=== PATIENT | female | born 1940 | race Caucasian/White ===

== ENCOUNTER 2021-01-25 16:47 | Inpatient (IN) | payer MEDICARE, SELFPAY ==
[2021-01-25] VITALS (8 sets, daily range): BP systolic 115–124; BP diastolic 72–77; PULSE 90–93; RESP 16–28; TEMP 36.6–36.9; O2SAT 92–95; BMI 28.0
--- NOTE | 2021-01-25 17:24 | ECG_ITS ---
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
--- NOTE | 2021-01-25 17:24 | XRR_ITS ---
PROCEDURE INFORMATION: Exam: XR Chest Exam date and time: 01/25/2021 5:26 PM Age: 80 years old Clinical indication: Cough and dyspnea and shortness of breath; Prior surgery; Surgery type: Pacemaker, valve; Additional info: Dyspnea/cough TECHNIQUE: Imaging protocol: XR of the chest. Views: 1 view. COMPARISON: CR Chest 1 [place] [id number] 09/01/2018 9:55 PM FINDINGS: Lungs: central pulmonary vasculature is prominent and indistinct. Mild airspace disease within the lung bases right greater than left. Pleural spaces: Unremarkable. No pleural effusion. No pneumothorax. Heart/Mediastinum: cardiac silhouette is enlarged. TAVR Bones/joints: Unremarkable. Other findings: Pole; Small effusions left greater than right. XR/XR chest 1V portable [id number] IMPRESSION: Mild edema with mild basilar airspace disease and small pleural effusions right greater than left.
--- NOTE | 2021-01-25 17:25 | W.ED.SOB ---
Documented by User: Shiraz Cramer DO 01/26/21 06:22 HPI - SOB/Dyspnea General: Chief Complaint: Shortness of Breath/Dyspnea Stated Complaint: Trouble Breathing Time Seen by Provider: 01/25/21 17:17 History of Present Illness: HPI Narrative: 80-year-old female presents to the emergency room with a complaint of shortness of breath. Patient evidently was started on a diltiazem recently as his concern that he she is having an allergic reaction to it. She did not have any chest pain. MD elicited complaint: shortness of breath Pertinent past history: COPD Onset (ago): hour(s) Context: other (New medication) Timing: constant Severity: moderate Exacerbating factors: lying flat, exertion, recent new medication, movement and talking Relieving factors: oxygen, rest and upright position Known history of: COPD Associated symptoms: Reports orthopnea; Deny abdominal pain, chest congestion, chest pain, cough, diaphoresis, dizziness, extremity pain, fever(s), hemoptysis, lightheadedness, myalgias, nausea, palpitations, paresthesias, polydipsia, polyuria, rash, sense of impending doom, syncope or vomiting Treatment prior to arrival: none Review of Systems Const: Denies: fever(s) or diaphoresis ENMT: Denies: throat pain, ear or mastoid pain, nasal discharge or nasal congestion Card: Reports: orthopnea; Denies: chest pain, palpitations, lightheadedness or syncope Resp: Denies: hemoptysis or chest congestion GI: Denies: abdominal pain, nausea or vomiting : Denies: flank pain, difficulty voiding, dysuria, urinary frequency or urinary urgency Musc: Denies: extremity pain Skin/Breast: Denies: rash or pruritus Neuro: Denies: dizziness Endo: Denies: polyuria or polydipsia PFSH ED PFSH: Medical History Aortic valve stenosis COPD (chronic obstructive pulmonary disease) Diverticulitis HTN (hypertension) Hyperlipidemia 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 Brother CAD (coronary artery disease) Other Cancer Myocardial infarct Social History Smoking and tobacco status: former smoker Alcohol intake: never Substance/Drug Use: never Household members: family Physical Exam Const: COMMON NORMALS: no acute distress GENERAL APPEARANCE: cooperative and comfortable ORIENTATION/CONSCIOUSNESS: Yes awake, Yes oriented to person, Yes oriented to place and Yes oriented to time HENMT: COMMON NORMALS: normocephalic, atraumatic, hearing grossly normal bilaterally, external ears normal, EAC's normal, TM's normal bilaterally, Normal nasal mucous membranes and turbinates present, moist oral mucous membranes and oropharynx normal HEAD & SCALP: normocephalic and atraumatic NOSE: Normal nasal mucous membranes and turbinates present EXTERNAL EAR: Yes external ears normal EXTERNAL AUDITORY CANAL: EAC's normal TYMPANIC MEMBRANE: TM's normal bilaterally Eye: COMMON NORMALS: Equal, round and reactive pupils present, EOMs intact bilaterally, conjunctivae normal and no scleral icterus CONJUNCTIVA: Yes conjunctivae normal PUPIL: Yes Equal, round and reactive pupils present Neck/C-Spine: COMMON NORMALS: full ROM, no lymphadenopathy, supple and no JVD Lymph: LYMPHATIC: no lymphadenopathy noted and no lymphedema noted Resp: COMMON NORMALS: normal respiratory effort, No retractions, No use of accessory muscles and clear to auscultation bilaterally AUSCULTATION: clear to auscultation bilaterally Cardio: COMMON NORMALS: no JVD, regular rate, regular rhythm and No murmurs present (Cardio) RATE: regular rate RHYTHM: regular rhythm GI: COMMON NORMALS: Soft to palpation and No hepatosplenomegaly present AUSCULTATION: Yes normoactive bowel sounds PALPATION: Yes Soft to palpation, No Tenderness to palpation present (GI), No Guarding due to palpation present (GI) and Yes No hepatosplenomegaly present Extremity: COMMON NORMALS: normal to inspection, capillary refill normal, no clubbing, cyanosis or edema, no calf tenderness and no pedal edema Neuro: SENSORIUM/ORIENTATION: Yes oriented to person, Yes oriented to place and Yes oriented to time Skin: COMMON NORMALS: no rashes or lesions noted GENERAL SKIN EXAM: no rashes or lesions noted Course Vital Signs: Vital signs: Vital Signs Temperature 97.8 F 01/26/21 04:00 Pulse Rate 82 01/26/21 04:00 Respiratory Rate 17 01/26/21 04:00 Blood Pressure 98/62 01/26/21 04:00 Pulse Oximetry 95 01/26/21 04:00 MDM - SOB/Dyspnea MDM Narrative: Medical decision making narrative: Care turned over to Dr. Marks at change of shift. There is a pleural effusion on chest x-ray further labs are pending. See his note for final diagnosis and disposition. Lab Data: Labs: Lab Results 01/25/21 01/25/21 01/25/21 Range/Units 17:32 17:33 17:33 WBC 7.4 (4.0-10.0) 10^3/ uL RBC 3.95 L (4.1-5.3) 10^6/u L Hgb 12.4 (11.5-15.3) g/dL Hct 37.0 (37.0-47.0) % MCV 93.7 (81-99) fL MCH 31.4 (28.0-34.0) pg MCHC 33.5 (30.0-36.0) g/dL RDW 12.5 (12.1-15.1) % Plt Count 263 (130-400) 10^3/c mm MPV 10.3 (7.4-10.4) fL Neut % (Auto) 78.0 % Lymph % (Auto) 14.1 % [place] % (Auto) 5.0 % Eos % (Auto) 1.6 % Baso % (Auto) 0.8 % Neut # (Auto) 5.73 (1.8-7.7) 10^3/u L Lymph # (Auto) 1.0 (0.8-4.8) 10^3/u L [place] # (Auto) 0.4 (0.2-0.9) 10^3/u L Eos # (Auto) 0.1 (0.0-0.8) 10^3/u L Baso # (Auto) 0.1 (0.0-0.1) 10^3/u L Nucleated RBC % (a uto) 0 % Nucleated RBCs # 0.0 /100WBC Specimen Type Arterial Sample Site Radial, left ABG pH 7.50 H (7.35-7.45) ABG pCO2 32.5 L (35-45) mmHg ABG pO2 65.2 L (80.0-100.0) mmH g ABG HCO3 25.1 (22-26) mmol/L ABG O2 Saturation 94.9 ABG Base Excess 2.3 H (-2.0-2.0) mmol/ L Conner Test Pos A-a O2 Gradient 5.6 (5-10) mmHg Hematocrit 38.7 (37-47) % Hgb O2 Saturation 93.2 L (95-100) % Carboxyhemoglobin 1.0 (0.4-20.1) %THgb Methemoglobin 0.7 (0.4-1.5) % Total Hemoglobin 12.6 (12-16) g/dL Sodium 136.0 136 (131-143) mmol/L Potassium 3.4 L 3.6 (3.5-5.0) mmol/L Glucose 137.0 H 154 H (70-115) mg/dL Ionized Calcium 1.1 (1.1-1.4) mmol/L O2 Delivery Device Room air Forensic Structural Engineer ID Gd Chloride 99 (98-107) mmol/L Carbon Dioxide 24 (22-29) mmol/L Anion Gap 16.6 (5-19) BUN 23 (8-23) mg/dL Creatinine 1.3 H (0.5-0.9) mg/dL GFR Calculation Not Reportable Calculated Osmolal ity 289 (285-295) mOsm/k g Calcium 8.5 (8.5-10.5) mg/dL Total Bilirubin 0.6 (0.15-1.2) mg/dL AST 26 (0-32) U/L ALT 14 (0-33) U/L Alkaline Phosphata se 102 (35-105) IU/L Creatine Kinase 54 (26-192) U/L Troponin T Baselin e (0-10) ng/L Troponin T 120 Min [place] (0-10) ng/L Delta Troponin T (0-10) ABS# NT-Pro-B Natriuret Pep > 3500 H (0-450) pg/mL Total Protein 6.4 L (6.6-8.7) g/dL Albumin 4.0 (3.5-5.2) g/dL Globulin 2.4 (1.3-4.6) g/dL Urine Color (Yellow) Urine Appearance (CLEAR) Urine pH (5-7) Ur Specific Gravit y (1.005-1.030) Urine Protein (Negative) Urine Glucose (UA) (Normal) Urine Ketones (Negative) Urine Blood (Negative) Urine Nitrate (Negative) Urine Bilirubin (Negative) Urine Urobilinogen (Negative) mg/dL Ur Leukocyte Felicia ase (Negative) 01/25/21 01/25/21 01/25/21 Range/Units 17:33 17:56 19:35 WBC (4.0-10.0) 10^3/ uL RBC (4.1-5.3) 10^6/u L Hgb (11.5-15.3) g/dL Hct (37.0-47.0) % MCV (81-99) fL MCH (28.0-34.0) pg MCHC (30.0-36.0) g/dL RDW (12.1-15.1) % Plt Count (130-400) 10^3/c mm MPV (7.4-10.4) fL Neut % (Auto) % Lymph % (Auto) % [place] % (Auto) % Eos % (Auto) % Baso % (Auto) % Neut # (Auto) (1.8-7.7) 10^3/u L Lymph # (Auto) (0.8-4.8) 10^3/u L [place] # (Auto) (0.2-0.9) 10^3/u L Eos # (Auto) (0.0-0.8) 10^3/u L Baso # (Auto) (0.0-0.1) 10^3/u L Nucleated RBC % (a uto) % Nucleated RBCs # /100WBC Specimen Type Sample Site ABG pH (7.35-7.45) ABG pCO2 (35-45) mmHg ABG pO2 (80.0-100.0) mmH g ABG HCO3 (22-26) mmol/L ABG O2 Saturation ABG Base Excess (-2.0-2.0) mmol/ L Conner Test A-a O2 Gradient (5-10) mmHg Hematocrit (37-47) % Hgb O2 Saturation (95-100) % Carboxyhemoglobin (0.4-20.1) %THgb Methemoglobin (0.4-1.5) % Total Hemoglobin (12-16) g/dL Sodium (131-143) mmol/L Potassium (3.5-5.0) mmol/L Glucose (70-115) mg/dL Ionized Calcium (1.1-1.4) mmol/L O2 Delivery Device Forensic Structural Engineer ID Chloride (98-107) mmol/L Carbon Dioxide (22-29) mmol/L Anion Gap (5-19) BUN (8-23) mg/dL Creatinine (0.5-0.9) mg/dL GFR Calculation Calculated Osmolal ity (285-295) mOsm/k g Calcium (8.5-10.5) mg/dL Total Bilirubin (0.15-1.2) mg/dL AST (0-32) U/L ALT (0-33) U/L Alkaline Phosphata se (35-105) IU/L Creatine Kinase (26-192) U/L Troponin T Baselin e 195 H* (0-10) ng/L Troponin T 120 Min [place] 175.8 H (0-10) ng/L Delta Troponin T -19.2 L (0-10) ABS# NT-Pro-B Natriuret Pep (0-450) pg/mL Total Protein (6.6-8.7) g/dL Albumin (3.5-5.2) g/dL Globulin (1.3-4.6) g/dL Urine Color Yellow (Yellow) Urine Appearance Clear (CLEAR) Urine pH 5 (5-7) Ur Specific Gravit y 1.015 (1.005-1.030) Urine Protein Neg (Negative) Urine Glucose (UA) Norm (Normal) Urine Ketones Negative (Negative) Urine Blood Neg (Negative) Urine Nitrate Negative (Negative) Urine Bilirubin Neg (Negative) Urine Urobilinogen Norm (Negative) mg/dL Ur Leukocyte Felicia ase Negative (Negative) Discharge Plan Discharge Patient Disposition: Admitted As Inpatient Admit Provider: Sena Flanagan Clinical Impression: Congestive heart failure Qualifiers: Heart failure type: unspecified Heart failure chronicity: acute on chronic Qualified Code(s): I50.9 - Heart failure, unspecified Condition: Stable Coding Level of Care Code ED Sensitometrist for [facility] Fwd Exam Comprehensive Documented by User: Stephie Marks MD 01/25/21 20:53 HPI - SOB/Dyspnea General: Chief Complaint: Shortness of Breath/Dyspnea Stated Complaint: Trouble Breathing Time Seen by Provider: 01/25/21 17:17 PFSH ED PFSH: Medical History Aortic valve stenosis COPD (chronic obstructive pulmonary disease) Diverticulitis HTN (hypertension) Hyperlipidemia 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 Brother CAD (coronary artery disease) Other Cancer Myocardial infarct Social History Smoking and tobacco status: former smoker Alcohol intake: never Substance/Drug Use: never Household members: family Course Vital Signs: Vital signs: Vital Signs Temperature 97.8 F 01/26/21 04:00 Pulse Rate 82 01/26/21 04:00 Respiratory Rate 17 01/26/21 04:00 Blood Pressure 98/62 01/26/21 04:00 Pulse Oximetry 95 01/26/21 04:00 MDM - SOB/Dyspnea MDM Narrative: Medical decision making narrative: Patient presents here with CHF exacerbation patient's BNP is elevated and she has pleural effusions along with pulmonary edema on chest x-ray. I spoke to the hospitalist will admit to janay. Patient does have an elevated troponin we will trend her troponin. She is having no chest pain and EKG is normal. Lab Data: Labs: Lab Results 01/25/21 01/25/21 01/25/21 Range/Units 17:32 17:33 17:33 WBC 7.4 (4.0-10.0) 10^3/ uL RBC 3.95 L (4.1-5.3) 10^6/u L Hgb 12.4 (11.5-15.3) g/dL Hct 37.0 (37.0-47.0) % MCV 93.7 (81-99) fL MCH 31.4 (28.0-34.0) pg MCHC 33.5 (30.0-36.0) g/dL RDW 12.5 (12.1-15.1) % Plt Count 263 (130-400) 10^3/c mm MPV 10.3 (7.4-10.4) fL Neut % (Auto) 78.0 % Lymph % (Auto) 14.1 % [place] % (Auto) 5.0 % Eos % (Auto) 1.6 % Baso % (Auto) 0.8 % Neut # (Auto) 5.73 (1.8-7.7) 10^3/u L Lymph # (Auto) 1.0 (0.8-4.8) 10^3/u L [place] # (Auto) 0.4 (0.2-0.9) 10^3/u L Eos # (Auto) 0.1 (0.0-0.8) 10^3/u L Baso # (Auto) 0.1 (0.0-0.1) 10^3/u L Nucleated RBC % (a uto) 0 % Nucleated RBCs # 0.0 /100WBC Specimen Type Arterial Sample Site Radial, left ABG pH 7.50 H (7.35-7.45) ABG pCO2 32.5 L (35-45) mmHg ABG pO2 65.2 L (80.0-100.0) mmH g ABG HCO3 25.1 (22-26) mmol/L ABG O2 Saturation 94.9 ABG Base Excess 2.3 H (-2.0-2.0) mmol/ L Conner Test Pos A-a O2 Gradient 5.6 (5-10) mmHg Hematocrit 38.7 (37-47) % Hgb O2 Saturation 93.2 L (95-100) % Carboxyhemoglobin 1.0 (0.4-20.1) %THgb Methemoglobin 0.7 (0.4-1.5) % Total Hemoglobin 12.6 (12-16) g/dL Sodium 136.0 136 (131-143) mmol/L Potassium 3.4 L 3.6 (3.5-5.0) mmol/L Glucose 137.0 H 154 H (70-115) mg/dL Ionized Calcium 1.1 (1.1-1.4) mmol/L O2 Delivery Device Room air Forensic Structural Engineer ID Gd Chloride 99 (98-107) mmol/L Carbon Dioxide 24 (22-29) mmol/L Anion Gap 16.6 (5-19) BUN 23 (8-23) mg/dL Creatinine 1.3 H (0.5-0.9) mg/dL GFR Calculation Not Reportable Calculated Osmolal ity 289 (285-295) mOsm/k g Calcium 8.5 (8.5-10.5) mg/dL Total Bilirubin 0.6 (0.15-1.2) mg/dL AST 26 (0-32) U/L ALT 14 (0-33) U/L Alkaline Phosphata se 102 (35-105) IU/L Creatine Kinase 54 (26-192) U/L Troponin T Baselin e (0-10) ng/L Troponin T 120 Min [place] (0-10) ng/L Delta Troponin T (0-10) ABS# NT-Pro-B Natriuret Pep > 3500 H (0-450) pg/mL Total Protein 6.4 L (6.6-8.7) g/dL Albumin 4.0 (3.5-5.2) g/dL Globulin 2.4 (1.3-4.6) g/dL Urine Color (Yellow) Urine Appearance (CLEAR) Urine pH (5-7) Ur Specific Gravit y (1.005-1.030) Urine Protein (Negative) Urine Glucose (UA) (Normal) Urine Ketones (Negative) Urine Blood (Negative) Urine Nitrate (Negative) Urine Bilirubin (Negative) Urine Urobilinogen (Negative) mg/dL Ur Leukocyte Felicia ase (Negative) 01/25/21 01/25/21 01/25/21 Range/Units 17:33 17:56 19:35 WBC (4.0-10.0) 10^3/ uL RBC (4.1-5.3) 10^6/u L Hgb (11.5-15.3) g/dL Hct (37.0-47.0) % MCV (81-99) fL MCH (28.0-34.0) pg MCHC (30.0-36.0) g/dL RDW (12.1-15.1) % Plt Count (130-400) 10^3/c mm MPV (7.4-10.4) fL Neut % (Auto) % Lymph % (Auto) % [place] % (Auto) % Eos % (Auto) % Baso % (Auto) % Neut # (Auto) (1.8-7.7) 10^3/u L Lymph # (Auto) (0.8-4.8) 10^3/u L [place] # (Auto) (0.2-0.9) 10^3/u L Eos # (Auto) (0.0-0.8) 10^3/u L Baso # (Auto) (0.0-0.1) 10^3/u L Nucleated RBC % (a uto) % Nucleated RBCs # /100WBC Specimen Type Sample Site ABG pH (7.35-7.45) ABG pCO2 (35-45) mmHg ABG pO2 (80.0-100.0) mmH g ABG HCO3 (22-26) mmol/L ABG O2 Saturation ABG Base Excess (-2.0-2.0) mmol/ L Conner Test A-a O2 Gradient (5-10) mmHg Hematocrit (37-47) % Hgb O2 Saturation (95-100) % Carboxyhemoglobin (0.4-20.1) %THgb Methemoglobin (0.4-1.5) % Total Hemoglobin (12-16) g/dL Sodium (131-143) mmol/L Potassium (3.5-5.0) mmol/L Glucose (70-115) mg/dL Ionized Calcium (1.1-1.4) mmol/L O2 Delivery Device Forensic Structural Engineer ID Chloride (98-107) mmol/L Carbon Dioxide (22-29) mmol/L Anion Gap (5-19) BUN (8-23) mg/dL Creatinine (0.5-0.9) mg/dL GFR Calculation Calculated Osmolal ity (285-295) mOsm/k g Calcium (8.5-10.5) mg/dL Total Bilirubin (0.15-1.2) mg/dL AST (0-32) U/L ALT (0-33) U/L Alkaline Phosphata se (35-105) IU/L Creatine Kinase (26-192) U/L Troponin T Baselin e 195 H* (0-10) ng/L Troponin T 120 Min [place] 175.8 H (0-10) ng/L Delta Troponin T -19.2 L (0-10) ABS# NT-Pro-B Natriuret Pep (0-450) pg/mL Total Protein (6.6-8.7) g/dL Albumin (3.5-5.2) g/dL Globulin (1.3-4.6) g/dL Urine Color Yellow (Yellow) Urine Appearance Clear (CLEAR) Urine pH 5 (5-7) Ur Specific Gravit y 1.015 (1.005-1.030) Urine Protein Neg (Negative) Urine Glucose (UA) Norm (Normal) Urine Ketones Negative (Negative) Urine Blood Neg (Negative) Urine Nitrate Negative (Negative) Urine Bilirubin Neg (Negative) Urine Urobilinogen Norm (Negative) mg/dL Ur Leukocyte Felicia ase Negative (Negative) Imaging Data^: CT Chest: Attestation: I personally reviewed and interpreted this imaging study as follows: Radiologist's impression: [place] [address] CT Scan Report Signed Patient: Shari Garcia Unit #: [id number] : 1940 Age/Sex: 80 / F ADM Date: 01/25/21 Loc: ER Room/Bed: Attending Dr: Ordering Provider/Ordering MD: Stephie Marks MD Date of Service: 01/25/21 Procedure(s): CT angio chest PE protcl [id number] Accession Number(s): [id number] Report Number: [id number] PROCEDURE INFORMATION: Exam: CTA Chest With Contrast Exam date and time: 01/25/2021 7:02 PM Age: 80 years old Clinical indication: Shortness of breath; Prior surgery; Surgery type: Pacemaker, valve; Additional info: SOB TECHNIQUE: Imaging protocol: Computed tomographic angiography of the chest with contrast. 3D rendering (Not supervised by radiologist): MIP and/or 3D reconstructed images were created by the technologist. Radiation optimization: All CT scans at this facility use at least one of these dose optimization techniques: automated exposure control; mA and/or kV adjustment per patient size (includes targeted exams where dose is matched to clinical indication); or iterative reconstruction. Contrast material: VISI 320; Contrast volume: 62 ml; Contrast route: INTRAVENOUS (IV); COMPARISON: CTA Chest-Pulmonary Emb [id number] 08/08/2019 2:15 PM RADIATION DOSE METRICS: Total DLP (mGy-cm): 554.29 FINDINGS: Tubes, catheters and devices: A pacemaker device is present, and its leads are in appropriate position. Pulmonary arteries: There is no pulmonary embolus. Aorta: Unremarkable. No aortic aneurysm. No aortic dissection. Lungs: There is diffuse interstitial and ground-glass opacity in the lungs compatible with CHF. Additional more prominent airspace/ground-glass opacities are noted in the lower lobes compatible with airspace edema, pneumonitis and/or atelectasis. Pleural spaces: There are moderate sized bilateral pleural effusions. There is no pneumothorax. Heart: The heart is enlarged. There is a small pericardial fluid collection present. Postoperative aortic bowel is again identified. Lymph nodes: There is mediastinal adenopathy including the 1.3 cm short axis lymph node in the aortopulmonary window. No axillary or hilar adenopathy is identified. Gallbladder and bile ducts: Multiple calcified gallstones are present. There is no wall thickening or pericholecystic fluid to suggest cholecystitis. There is no common bile duct dilation. Bones/joints: There is dextroscoliosis. Chronic appearing compression fracture deformity of L1 is noted. No acute bony abnormality. Soft tissues: Unremarkable. CT/CT angio chest PE protcl [id number] IMPRESSION: 1. There is no pulmonary embolus. 2. There is diffuse interstitial and ground-glass opacity in the lungs compatible with CHF. 3. Additional more prominent airspace/ground-glass opacities are noted in the lower lobes compatible with airspace edema, pneumonitis and/or atelectasis. Moderate sized bilateral pleural effusions are present. Radiation Dose CTDIVOL = (mGy): DLP = 554.29 (mGy-cm) EKG Data^: EKG 1: Attestation: I personally reviewed and interpreted this EKG as follows: EKG Interpretation Date: 01/25/21 EKG interpretation time: 19:49 Interpretation: paced hr [address] or t wave abnormalities qrs 147 qtc 467 Discharge Plan Discharge Patient Disposition: Admitted As Inpatient Admit Provider: Sena Flanagan Clinical Impression: Congestive heart failure Qualifiers: Heart failure type: unspecified Heart failure chronicity: acute on chronic Qualified Code(s): I50.9 - Heart failure, unspecified Condition: Stable Coding Level of Care Code ED Sensitometrist for Chg Fwd Exam Comprehensive
[2021-01-25 17:48] LABS: ABG PCO2 32.5 mmHg (35-45); Alveolar-Arterial Oxygen Gradi 5.6 mmHg (5-10); Arterial Blood Gas Hematocrit 38.7 % (37-47); Base Excess ABG 2.3 mmol/L (-2.0-2.0); Blood Gas Allen Test Pos; Blood Gas Operator Identificat GD; Blood Gas Sample Site Radial, left; Blood Gas Sample Type Arterial; HCO3 ABG 25.1 mmol/L (22-26); HGB O2 Sat 93.2 % (95-100); Ionized Calcium Level - ABG 1.1 mmol/L (1.1-1.4); Methemoglobin 0.7 % (0.4-1.5); Oxygen Device ROOM AIR; Oxygen Saturation ABG 94.9; PO2 ABG 65.2 mmHg (80.0-100.0); Potassium Level - ABG 3.4 mmol/L (3.5-5.0); Total Hemoglobin 12.6 g/dL (12-16)
[2021-01-25 17:50] LABS: Basophils # 0.1 10^3/uL (0.0-0.1); Basophils % 0.8 %; Eosinophils # 0.1 10^3/uL (0.0-0.8); Eosinophils % 1.6 %; Hemoglobin 12.4 g/dL (11.5-15.3); Lymphocytes % 14.1 %; Mean Corpuscular HGB Conc 33.5 g/dL (30.0-36.0); Mean Corpuscular Hemoglobin 31.4 pg (28.0-34.0); Mean Corpuscular Volume 93.7 fL (81-99); Mean Platelet Volume 10.3 fL (7.4-10.4); Monocytes # 0.4 10^3/uL (0.2-0.9); Neutrophils # 5.73 10^3/uL (1.8-7.7); Nucleated Red Blood Cells % 0 %; Platelet Count 263 10^3/cmm (130-400); Red Blood Count 3.95 10^6/uL (4.1-5.3); Red Cell Distribution Width 12.5 % (12.1-15.1); White Blood Count 7.4 10^3/uL (4.0-10.0)
[2021-01-25 18:15] LABS: Add Urine Microscopic? NO; Charge for UA Resulting for Rev
[2021-01-25 18:22] LABS: Bilirubin Urine Neg (Negative); Blood Urine Neg (Negative); Glucose Urine UA Norm (Normal); Ketones Urine Negative (Negative); Leukocyte Esterase Urine Negative (Negative); Nitrate Urine Negative (Negative); Protein Urine Neg (Negative); Specific Gravity, Urine 1.015 (1.005-1.030); Urine Appearance Clear (CLEAR); Urine Color Yellow (Yellow); Urobilinogen Urine Norm (Negative); pH Urine 5 (5-7)
[2021-01-25 18:29] LABS: Troponin(5th) Baseline 195 ng/L (0-10)
[2021-01-25 18:36] LABS: Alanine Aminotransferase 14 U/L (0-33); Alkaline Phosphatase 102 IU/L (35-105); Anion Gap 16.6 (5-19); Aspartate Amino Transferase 26 U/L (0-32); Blood Urea Nitrogen 23 mg/dL (8-23); Calcium 8.5 mg/dL (8.5-10.5); Carbon Dioxide 24 mmol/L (22-29); Chloride 99 mmol/L (98-107); Creatine Phosphokinase 54 U/L (26-192); Globulin 2.4 g/dL (1.3-4.6); Glucose 154 mg/dL (65-115); Osmolality Calculated 289 mOsm/kg (285-295); Potassium 3.6 mmol/L (3.5-5.1); Sodium 136 mmol/L (136-145); Total Bilirubin 0.6 mg/dL (0.15-1.2); Total Protein 6.4 g/dL (6.6-8.7)
[2021-01-25 18:43] LABS: NT Pro B Type Natriuretic Pept > 3500 pg/mL (0-450)
--- NOTE | 2021-01-25 18:50 | CTR_ITS ---
PROCEDURE INFORMATION: Exam: CTA Chest With Contrast Exam date and time: 01/25/2021 7:02 PM Age: 80 years old Clinical indication: Shortness of breath; Prior surgery; Surgery type: Pacemaker, valve; Additional info: SOB TECHNIQUE: Imaging protocol: Computed tomographic angiography of the chest with contrast. 3D rendering (Not supervised by radiologist): MIP and/or 3D reconstructed images were created by the technologist. Radiation optimization: All CT scans at this facility use at least one of these dose optimization techniques: automated exposure control; mA and/or kV adjustment per patient size (includes targeted exams where dose is matched to clinical indication); or iterative reconstruction. Contrast material: VISI 320; Contrast volume: 62 ml; Contrast route: INTRAVENOUS (IV); COMPARISON: CTA Chest-Pulmonary Emb [id number] 08/08/2019 2:15 PM RADIATION DOSE METRICS: Total DLP (mGy-cm): 554.29 FINDINGS: Tubes, catheters and devices: A pacemaker device is present, and its leads are in appropriate position. Pulmonary arteries: There is no pulmonary embolus. Aorta: Unremarkable. No aortic aneurysm. No aortic dissection. Lungs: There is diffuse interstitial and ground-glass opacity in the lungs compatible with CHF. Additional more prominent airspace/ground-glass opacities are noted in the lower lobes compatible with airspace edema, pneumonitis and/or atelectasis. Pleural spaces: There are moderate sized bilateral pleural effusions. There is no pneumothorax. Heart: The heart is enlarged. There is a small pericardial fluid collection present. Postoperative aortic bowel is again identified. Lymph nodes: There is mediastinal adenopathy including the 1.3 cm short axis lymph node in the aortopulmonary window. No axillary or hilar adenopathy is identified. Gallbladder and bile ducts: Multiple calcified gallstones are present. There is no wall thickening or pericholecystic fluid to suggest cholecystitis. There is no common bile duct dilation. Bones/joints: There is dextroscoliosis. Chronic appearing compression fracture deformity of L1 is noted. No acute bony abnormality. Soft tissues: Unremarkable. CT/CT angio chest PE protcl [id number] IMPRESSION: 1. There is no pulmonary embolus. 2. There is diffuse interstitial and ground-glass opacity in the lungs compatible with CHF. 3. Additional more prominent airspace/ground-glass opacities are noted in the lower lobes compatible with airspace edema, pneumonitis and/or atelectasis. Moderate sized bilateral pleural effusions are present. Radiation Dose CTDIVOL = (mGy): DLP = 554.29 (mGy-cm)
[2021-01-25] MEDS: iodixanol 320 mg/mL 100mL Btl IV (19:20)
--- NOTE | 2021-01-25 19:24 | ECG_ITS ---
[facility] Test Date: 2021-01-25 Pat Name: Shari Garcia Department: Room: Gender: Female Fine Patcher: : 1940 Requested By: Shiraz Nielson Order Number: [id number] Reading MD: YOLIS GARCIA Measurements Intervals [place] Rate: 93 P: 53 SC: 176 QRS: -80 QRSD: 147 T: 102 QT: 416 QTc: 518 Interpretive Statements ELECTRONIC VENTRICULAR PACEMAKER ABNORMAL RHYTHM ECG Compared to ECG 01/25/2021 17:42:29 No significant changes Electronically Signed On 01-25-2021 21:24:36 CDT by YOLIS GARCIA [id number]
[2021-01-25] MEDS: FUROsemide 10 mg/mL SDV 10mL 60 MG IVP (20:32)
--- NOTE | 2021-01-25 20:49 | PM.HP ---
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 Patient is adamant that for last 2 weeks she has been experiencing exertional shortness of breath and today it was happening at rest, she is endorsing orthopnea, PND, does not use oxygen at baseline, she is a former smoker, was evaluated by cardiology for her tricuspid valve regurgitation and palpitations, she was prescribed diltiazem. Patient is stating that she took first dose of diltiazem today and felt extremely short of breath afterwards. She did not notice any skin rash, lip swelling, abnormal noises on taking deep breaths. She is denying chest pain, fever, sinus infection, cough, abdominal pain. Diagnosis in the ER revealed normal CBC, respiratory alkalosis, relative hypoxia on room air, she was not requiring oxygen at the time of evaluation, creatinine at baseline, no active chest pain, troponin trending down however baseline troponin 195 EKG showing paced rhythm, normal UA, CTA rule out PE but consistent with CHF/vessel congestion and pleural effusion, no signs of pneumonia. She was given IV 60 mg of Lasix in the ER Review of Systems Const: Reports: chills, body aches and fatigue; Denies: fever(s) Eyes: Denies: change in vision ENMT: Denies: throat pain Card: Reports: dyspnea on exertion and orthopnea; Denies: chest pain Resp: Reports: dyspnea GI: Denies: abdominal pain : Denies: flank pain Musc: Denies: neck pain Skin/Breast: Denies: rash Neuro: Denies: headache(s) Psych: Denies: anxiety Endo: Denies: polyuria Wade/Lymph: Denies: easy bruising All/Imm: Denies: urticaria Medications/Allergies Home Medications Medication Instructions Recorded Confirmed Last Taken Type Lactobacill 1 cap PO DAILY 04/16/20 01/25/21 01/25/21 History acidophilus-L.helvetic-B.bifidum 250 million cell capsule albuterol sulfate 90 mcg/actuation 2 puff INHALATION Q6H PRN 04/16/20 01/25/21 01/25/21 History aerosol inhaler cholecalciferol (vitamin D3) 25 25 mcg PO DAILY 04/16/20 01/25/21 01/25/21 History mcg (1,000 unit) capsule ezetimibe 10 mg tablet 10 mg PO BEDTIME 04/16/20 01/25/21 01/24/21 History latanoprost 0.005 % eye drops 1 drop OPHTHALMIC (EYE) DAILY 04/16/20 01/25/21 01/24/21 History meloxicam 7.5 mg tablet 7.5 mg PO DAILY 04/16/20 01/25/21 01/24/21 History aspirin 325 mg tablet 325 mg PO DAILY 01/12/21 01/25/21 01/25/21 History brimonidine 0.2 % eye drops 1 drp OPHTHALMIC (EYE) BID 01/12/21 01/25/21 01/25/21 History cetirizine 10 mg tablet 10 mg PO DAILY tab 01/12/21 01/25/21 01/25/21 History furosemide 40 mg tablet 40 mg PO DAILY PRN 01/12/21 01/25/21 01/25/21 History potassium gluconate 595 mg (99 mg) 595 mg PO DAILY PRN 01/12/21 01/25/21 01/22/21 History tablet diltiazem HCl 60 mg tablet 60 mg PO BID #180 tab 01/20/21 01/25/21 01/25/21 Rx Allergies Allergy/AdvReac Type Severity Reaction Status Date / Time erythromycin base Allergy Unknown Verified 01/25/21 17:09 simvastatin Allergy Unknown Verified 01/25/21 17:09 Sulfa (Sulfonamide Allergy Unknown Verified 01/25/21 17:09 Antibiotics) PFSH Acute PFSH: Medical History Aortic valve stenosis COPD (chronic obstructive pulmonary disease) Diverticulitis HTN (hypertension) Hyperlipidemia 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 Brother CAD (coronary artery disease) Other Cancer Myocardial infarct Social History Smoking and tobacco status: former smoker Alcohol intake: never Substance/Drug Use: never Household members: family Vitals/I&O/Wt Last Vital Signs Temp 97.9 F 01/25/21 20:30 Pulse 91 01/25/21 20:30 Resp 22 H 01/25/21 20:30 BP 120/77 01/25/21 20:30 Pulse Ox 94 01/25/21 20:30 Weight last 48 hrs Weight 63.049 kg Physical Exam Narrative: EXAM NARRATIVE: elderly female who appears stated age, saturating well on room air no active conversational dyspnea or acute shortness of breath or chest pain S1, S2 pansystolic murmur no active signs of severe fluid overload Bilateral breath sounds with mild crackles at the bases Lower extremity trace edema at the ankles Awake alert oriented x3 GCS 15 No neurological deficit Abdomen soft nontender No skin findings of ischemia gangrene ulcer or cellulitis Appropriate mood and affect Granddaughter at the bedside Data : 01/25/21 17:33 01/25/21 17:33 A&P Assessment and plan (1) CHF exacerbation: Status: Acute (2) Chronic kidney disease: Status: Acute (3) Acute respiratory failure with hypoxia: Status: Acute Additional A&P Information Acute hypoxia secondary to CHF exacerbation Patient has history of bioprosthetic aortic valve and tricuspid valve regurgitation and palpitations, I will discontinue diltiazem and start her on metoprolol, no signs of anaphylaxis, she prefers to go back to [place] for her valvular treatment I would discontinue Lasix and start her on Bumex 1 mg daily No active chest pain however baseline troponin is high, hemodynamically stable, EKG showing paced rhythm, I would not start any anticoagulating agent for now Will need home O2 evaluation before discharge does carry history of COPD currently saturating well on room air no active conversational dyspnea, patient is endorsing feeling better after IV Lasix given in the ER, chest imaging consistent with basilar congestion no signs of pneumonia, PE ruled out Chronic kidney disease: No acute exacerbation her baseline creatinine seems to be around 1.3 Acute hypoxia secondary to CHF: Home O2 evaluation, diuretics for now, echo in the morning, PE ruled out, no signs of pneumonia Cardiac diet Full code DVT prophylaxis Heparin Attestations Medical Necessity Statement*: Anticipating discharge in less than 48 hours overnight monitoring because of CHF exacerbation and acute hypoxia. Time Spent in Patient Care: 35mins Coding Level of Care Code Acute Nurse Emergency Room for Fabrice Fwd Diagnoses CHF exacerbation I50.9 Chronic kidney disease N18.9 Acute respiratory failure with hypoxia J96.01
[2021-01-25 21:08] LABS: Troponin 5 2HR 175.8 ng/L (0-10); Troponin 5 2HR Delta -19.2 ABS# (0-10)
--- NOTE | 2021-01-25 23:24 | ECG_ITS ---
[facility] Test Date: 2021-01-25 Pat Name: Shari Garcia Department: Room: Gender: Female Accreditation Coordinator: : 1940 Requested By: Shiraz Nielson Order Number: [id number] Reading MD: YOLIS GARCIA Measurements Intervals [place] Rate: 90 P: 40 IA: 168 QRS: -79 QRSD: 150 T: 99 QT: 423 QTc: 520 Interpretive Statements ELECTRONIC VENTRICULAR PACEMAKER ABNORMAL RHYTHM ECG Compared to ECG 01/25/2021 19:49:55 No significant changes Electronically Signed On 01-25-2021 21:24:31 CDT by YOLIS GARCIA [id number]
[2021-01-26] VITALS (14 sets, daily range): BP systolic 88–114; BP diastolic 46–72; PULSE 71–95; RESP 16–26; TEMP 36.6–36.8; O2SAT 92–98
[2021-01-26 00:13] LABS: Troponin 5 6HR 209.7 ng/L (0-10); Troponin 5 6HR Delta 14.7 ng/L (0-12)
--- NOTE | 2021-01-26 00:25 | USCV_ITS ---
Shari Garcia Age: 80 Gender: F : 1940 Exam Date: 01/26/2021 05:48 Ordering Phys: Sena Flanagan MD Technologist: Lesley Waite Exam Location: [facility] [place] Indication: DYSPNEA BP: 98 / 62 HR: 91 Rhythm: PACED Technical Quality: Adequate MEASUREMENTS (Male / Female) Normal Values 2D ECHO LV Diastolic Diameter PLAX 2.9 cm 4.2 - 5.9 / 3.9 - 5.3 cm LV Systolic Diameter PLAX 2.8 cm LV Chamber Size 3.6 cm IVS Diastolic Thickness 1.2 cm 0.6 - 1.0 / 0.6 - 0.9 cm IVS Systolic Thickness 1.6 cm LVPW Diastolic Thickness 1.3 cm 0.6 - 1.0 / 0.6 - 0.9 cm LVPW Systolic Thickness 1.5 cm RV Chamber Size 2.6 cm LVOT Diameter 2.0 cm LV Ejection Fraction 2D Teich 10.3 % LV Ejection Fraction MOD 2C 9.5 % LV Ejection Fraction 2C AL 7.4 % LA Diameter 2.6 cm LA Width 2.7 cm LA Height 4.0 cm RA Width 3.4 cm RA Height 3.5 cm Aorta at Sinotubular Diameter 3.4 cm M-MODE LV Diastolic Diameter MM 5.3 cm 4.2 - 5.9 / 3.9 - 5.3 cm LV Systolic Diameter MM 4.1 cm LV Ejection Fraction MM Teich 46.6 % IVS Diastolic Thickness MM 1.3 cm 0.6 - 1.0 / 0.6 - 0.9 cm IVS Systolic Thickness MM 1.6 cm LVPW Diastolic Thickness MM 1.1 cm 0.6 - 1.0 / 0.6 - 0.9 cm LVPW Systolic Thickness MM 2.0 cm RV Diastolic Diameter MM 1.1 cm Aortic Annulus Diameter 3.2 cm LA Ao Ratio MM 0.8 MV E Point Septal Separation 0.6 cm DOPPLER AV Peak Velocity 390.3 cm/s LVOT Peak Velocity 54.3 cm/s AV Area Cont Eq vti 0.5 cm squared AV Area Cont Eq pk 0.4 cm squared MV Area PHT 4.9 cm squared MV E' Velocity 66.0 cm/s Mitral E to MV E' Ratio 20.2 Mitral E to LV E' Lateral Ratio 17.9 Mitral E to LV E' Septal Ratio 23.6 TR Peak Velocity 338.1 cm/s TR Peak Gradient 45.7 mmHg TR Mean Velocity 255.7 cm/s TR Mean Gradient 30.2 mmHg TR Velocity Time Integral 116.3 cm TV Peak E Velocity 89.0 cm/s Right Atrial Pressure 3.0 mmHg Pulmonary Artery Systolic Pressu 48.7 mmHg PV Peak Velocity 63.0 cm/s RV Acceleration Time 0.1 s RV Ejection Time 0.3 s RV AcT/ET 0.5 FINDINGS Left Ventricle Normal left ventricular size. LV systolic function is mildly reduced with EF of 40-45%. Regional wall motion abnormalities can not be ruled out because of limited visualization. Diastolic function is indeterminate because of paced rhythm Right Ventricle The right ventricle is normal in size and function. Pacemaker lead is noted Right Atrium The right atrium is normal in size. Pacemaker lead is present Left Atrium The left atrium is normal in size. Mitral Valve Structurally normal mitral valve without significant stenosis or prolapse. There is no mitral regurgitation. Aortic Valve Aortic valve is not well visualized. Thickened bioprosthetic aortic valve. There is severe stenosis with mean gradient across the valve of 43mmHg, HALLIE of 0.4cm2 and DVI of 0.11. There is mild to moderate aortic regurgitation Tricuspid Valve Structurally normal tricuspid valve without significant stenosis. Mild tricuspid regurgitation. RVSP is 55-60mmHg. This is consistent with moderate pulmonary hypertension Pulmonic Valve Structurally normal pulmonic valve without significant stenosis. There is no pulmonic regurgitation. Pericardium Normal pericardium without effusion. Aorta Normal ascending aorta dimension. CONCLUSIONS This is technically limited study because of poor visualization of cardiac structures LV systolic function is mildly reduced with EF of 40-45%. Regional wall motion abnormalities can not be ruled out because of poor visualization Diastolic function is indeterminate because of paced rhythm Pacemaker lead noted in right atrium and right ventricle Bioprosthetic aortic valve is not well visualized but is thickened. Severely elevated gradients across the valve. Mean grandient is 43mmHg. DVI is 0.11. There is also mild to moderate aortic regurgitation Moderate pulmonary hypertension Compared to prior echocardiogram from 08/10/2017, LV systolic function has mildly decreased. Patient also has developed severely elevated gradients across the aortic valve and an abnormal DVI of 0.11 now. Will need repeat aortic valve procedure (TAVR valve in valve vs surgical redo valve) Juan Manuel Alvarado MD (Electronically Signed) Final Date: 26 January 2021 21:19 S
[2021-01-26] MEDS: heparin 5,000 unit/mL INJ 1 mL 5000 UNIT SUBCUT ×4 (00:51→23:46)
[2021-01-26 06:10] LABS: Anion Gap 14.7 (5-19); Blood Urea Nitrogen 23 mg/dL (8-23); Calcium 8.4 mg/dL (8.5-10.5); Carbon Dioxide 27 mmol/L (22-29); Chloride 98 mmol/L (98-107); Glucose 108 mg/dL (65-115); Osmolality Calculated 286 mOsm/kg (285-295); Potassium 3.7 mmol/L (3.5-5.1); Sodium 136 mmol/L (136-145)
[2021-01-26] MEDS: bumetanide 1 mg Tablet PO (09:06)
[2021-01-26] MEDS: aspirin 325 mg Tablet PO (09:07)
[2021-01-26] MEDS: metoprolol tartrate 25 mg Tablet PO ×2 (09:07→20:13)
--- NOTE | 2021-01-26 09:53 | PC.CHAP ---
Pastoral Care Encounter/Spiritual Assessment Type of Contact [] Declined synthetic soil blocks pulper visit [] Patient/Family/Request visit [] Outpatient visit [] Follow-up visit [] Physician referral [] Code/Alert [x] Routine visit [] Staff referral [] Actively dying [] Patient sleeping [] Family support [] [] Out of room [] Palliative care [] [] Receiving care in room [] Pre-surgical visit [] Trauma [] Long length of stay [] ICU visit [] Other: Relational/Emotional Strength [x] Patient feels connected with others/family/visitors/staff [] Distress [] Loneliness/isolation [] Abandonment Spirituality of Patient [x] Person of Jennifer [x] Attends Sikhism of their Jennifer [x] Believes in Prayer [x] Reads Bible or Spiritism materials [] There are Spiritual issues to be addressed [employer] Interventions [x] Prayer [x] Active listening [x] Non-anxious presence [x] Spiritual/emotional support [] Crisis/trauma care [] Spiritual counseling [] Bereavement support [] Provided bereavement packet [] Provided Bible/devotional materials [] Provided toy/stuffed animal, coloring book to patient or family member [] Provided Communion [] Anointing/[place] [] Salvation [x] Completed spiritual assessment [] Other: Impact on Illness or Injury [] Angry [] Fearful [] Anxious [] Often cries [] Exhaustion [] Unable to work [] Unable to attend hoahaoism [] Unable to walk/stand [] Unable to read [] Unable to drive [] Unable to eat/drink [] Unable to sleep [] Unable to be with family [] Patient intubated [] Other: Summary Pt is expecting to be released today. Her daughter is coming by shortly to pick her up. Pt. is facing additional treatment to fix a hole in her heart but wants to return to [place] where she has had a procedure done previously. Pt lives alone but daughter provides care for her. Pt is a believer and requested prayer. Time spent with patient 15m
--- NOTE | 2021-01-26 11:59 | PM.PN ---
Subjective Subjective: Interval history: Patient admitted overnight. H&P and labs appreciated. Patient reevaluation states she has been having palpitations on and off for last couple of weeks for which she had gone to Dr. Sheikh. She was started on Cardizem to which she reacted with numbing and tingling on her face along with difficulty in breathing so it was changed over to metoprolol. She states she feels a lot better with metoprolol though still thinks that it was causing her to have difficulty in breathing. She states she been having difficulty in breathing both at rest more so and lying down for last 2 to 4 days getting worse last night because of it she came to the ER. She has been having epigastric discomfort going up to retrosternal area which is like heaviness associated with nausea more so on exertion for last 1 week worse since last night. Patient states she still having the symptoms are not today morning though she feels a lot better from breathing today. Overnight patient's troponin went as high as 209 with a delta of 15. Vitals/I&O/Wt Last Vital Signs Temp 98.1 F 01/26/21 11:36 Pulse 76 01/26/21 11:36 Resp 18 01/26/21 11:36 BP 114/71 01/26/21 11:36 Pulse Ox 98 01/26/21 11:36 01/25/21 01/26/21 01/26/21 22:59 06:59 14:59 Intake Total 240 / 240 Output Total 700 / 700 Balance -700 / -700 240 / 240 Weight last 48 hrs Weight 63.049 kg Physical Exam Narrative: EXAM NARRATIVE: General: No acute distress, AO x3 mildly tachypneic HEENT: PERRLA, pupils bilaterally equal and reactive Chest: Normal vesicular breath sounds, bilateral fine crackles in the lower zone, occasional rhonchi present all over the lung field, equal good air entry bilaterally CVS: S1-S2 regular, ejection systolic murmur present at the aortic area 1/6 radiating to bilateral carotids, no tachycardia, no gallops, no rubs Abdomen: Soft, nontender, no organomegaly, bowel sounds present Neuro: No focal deficits, no facial deformity, AO x3, power 5/5 in all limbs Data : 01/25/21 17:33 01/26/21 05:02 A&P Assessment and plan (1) Anginal equivalent: Status: Acute (2) Aortic valve replaced: Status: Acute (3) Pacemaker: Status: Acute (4) Acute respiratory failure with hypoxia: Status: Acute (5) CHF exacerbation: Status: Acute (6) Chronic kidney disease: Status: Acute Additional A&P Information 71-year-old female with past medical history of aortic valve placement, pacemaker, COPD, palpitation going on and off for last couple of weeks presented to the ER with symptoms suggestive of CHF along with angina/angina. Angina equivalent: Overnight patient's troponin trended up the delta of 15. Repeat troponin today morning. Patient continues to have episodes of chest and epigastric heaviness. Check HbA1c, lipid panel. Continue aspirin at home dose. We will consult cardiology for possible angiogram in view of elevated troponins. Acute hypoxia secondary to CHF exacerbation Patient has history of bioprosthetic aortic valve and tricuspid valve regurgitation and palpitations. Echocardiogram done results awaited. Patient still short of breath today morning with tachypnea. Switch Bumex to Lasix IV 40 twice daily. Strict input output charting, daily weights. COPD: Start patient on DuoNebs every 6 hours. Oxygen supplementation keeping saturation over 90%. History of aortic valve replacement: As per examination it seems patient valve is tight again. Will await echocardiogram results. Can be the cause of patient's angina equivalent as well. As above will consult cardiology for further recommendations. For now we will avoid nitrates. CKD: Creatinine stable at 1.3. We will continue to monitor. Medical reconciliation done for nephrotoxic drugs. Cardiac diet Full code DVT prophylaxis Heparin Transfer to CSU. Switch to inpatient status. Attestations Medical Necessity Statement*: Patient requires further hospitalization for management of CHF, angina:/NSTEMI in setting of history of aortic valve replacement. Time Spent in Patient Care: Greater than 35 minutes (>than 50% of time spent in counselling and/or direct pt care on unit). Coding Level of Care Code Acute Tangled Yarn Worker for Fabrice Ross Diagnoses Anginal equivalent I20.8 Aortic valve replaced Z95.2 Pacemaker Z95.0 Acute respiratory failure with hypoxia J96.01 CHF exacerbation I50.9 Chronic kidney disease N18.9
[2021-01-26 12:13] LABS: Troponin T (5th) Once 204 ng/L (0-10)
--- NOTE | 2021-01-26 12:19 | PC.NURSE ---
Report to Luna HINTON at this time.
[2021-01-26] MEDS: FUROsemide 10 mg/mL SDV 4mL 40 MG IVP ×2 (12:28→23:46)
[2021-01-26 12:39] LABS: Iron 59 ug/dL (37-145); Thyroid Stimulating Hormone 1.61 uIU/mL (0.27-4.20)
[2021-01-26 13:19] LABS: Estmated Average Glucose 88; Hemoglobin A1C 4.7 % (4.0-6.0)
[2021-01-26 13:21] LABS: Percent Saturation 18.6 % (20-50); Total Iron Binding Capacity 316 mcg/dl; Unsaturated Iron Binding 257 ug/dL (112-347)
--- NOTE | 2021-01-26 14:20 | PC.NURSE ---
Patient to CSU at this time.
[2021-01-26] MEDS: ipratropium-albuterol 3 mL Neb INHALATION ×2 (15:45→20:27)
--- NOTE | 2021-01-26 18:25 | PM.CONSULT ---
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 Patient sees Dr Sheikh in the office. According to patient she has been having shortness of breath for the last 2 weeks however was noticing resting breathing difficulty that prompted her to come to the hospital. Patient was found to have volume overload. Her NT proBNP was more than 3500. Troponin initially was 195 which trended down. Patient denies any chest pain. Echocardiogram has been performed that shows that her bioprosthetic aortic valve is significantly elevated gradients across it with mean gradient of 43 mmHg and aortic valve area of 0.4 cm?. DVI is 0.11. LV systolic function is mildly reduced with EF 40 to 45%. Review of Systems Const: Reports: chills, body aches and fatigue; Denies: fever(s) Eyes: Denies: change in vision ENMT: Denies: throat pain Card: Reports: dyspnea on exertion and orthopnea; Denies: chest pain Resp: Reports: dyspnea GI: Denies: abdominal pain : Denies: flank pain Musc: Denies: neck pain Skin/Breast: Denies: rash Neuro: Denies: headache(s) Psych: Denies: anxiety Endo: Denies: polyuria Wade/Lymph: Denies: easy bruising All/Imm: Denies: urticaria Meds/Allergies Home Medications and Allergies Home Medications Medication Instructions Recorded Confirmed Last Taken Type Lactobacill 1 cap PO DAILY 04/16/20 01/25/21 01/25/21 History acidophilus-L.helvetic-B.bifidum 250 million cell capsule albuterol sulfate 90 mcg/actuation 2 puff INHALATION Q6H PRN 04/16/20 01/25/21 01/25/21 History aerosol inhaler cholecalciferol (vitamin D3) 25 25 mcg PO DAILY 04/16/20 01/25/21 01/25/21 History mcg (1,000 unit) capsule ezetimibe 10 mg tablet 10 mg PO BEDTIME 04/16/20 01/25/21 01/24/21 History latanoprost 0.005 % eye drops 1 drop OPHTHALMIC (EYE) DAILY 04/16/20 01/25/21 01/24/21 History meloxicam 7.5 mg tablet 7.5 mg PO DAILY 04/16/20 01/25/21 01/24/21 History aspirin 325 mg tablet 325 mg PO DAILY 01/12/21 01/25/21 01/25/21 History brimonidine 0.2 % eye drops 1 drp OPHTHALMIC (EYE) BID 01/12/21 01/25/21 01/25/21 History cetirizine 10 mg tablet 10 mg PO DAILY tab 01/12/21 01/25/21 01/25/21 History potassium gluconate 595 mg (99 mg) 595 mg PO DAILY PRN 01/12/21 01/25/21 01/22/21 History tablet furosemide 20 mg PO DAILY@0800 #30 tab 01/27/21 Unknown Rx metoprolol tartrate 12.5 mg PO BID@0900,2100 #30 tab 01/27/21 Unknown Rx Allergies Allergy/AdvReac Type Severity Reaction Status Date / Time erythromycin base Allergy Unknown Verified 01/25/21 17:09 simvastatin Allergy Unknown Verified 01/25/21 17:09 Sulfa (Sulfonamide Allergy Unknown Verified 01/25/21 17:09 Antibiotics) Current Medications Current Medications Generic Name Dose Route Start Last Admin Trade Name Freq PRN Reason Stop Dose Admin Albuterol/Ipratropium 3 ml 01/26/21 15:00 01/26/21 15:45 Ipratropium-Albuterol 3 Ml Neb INHALATION 3 ml Q6H.RESPIRATORY JANET Administration Aspirin 325 mg 01/26/21 09:00 01/26/21 09:07 Aspirin 325 Mg Tablet PO 325 mg DAILY JANET Administration Furosemide 40 mg 01/26/21 12:00 01/26/21 12:28 Furosemide 10 Mg/Ml Sdv 4ml IVP 40 mg Q12H JANET Administration Heparin Sodium (Beef Lung) 5,000 unit 01/26/21 00:30 01/26/21 15:37 Heparin 5,000 Unit/Ml Inj 1 Ml SUBCUT 5,000 unit Q8H JANET Administration Metoprolol Tartrate 25 mg 01/26/21 09:00 01/26/21 09:07 Metoprolol Tartrate 25 Mg Tablet PO 25 mg BID@0900,2100 JANET Administration PFSH Acute PFSH: Medical History (Updated 01/28/21 @ 11:21 by Juan Manuel Alvarado M.D) Aortic valve stenosis Chronic kidney disease Congestive heart failure COPD (chronic obstructive pulmonary disease) Diverticulitis HTN (hypertension) Hyperlipidemia 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 Brother CAD (coronary artery disease) Other Cancer Myocardial infarct Social History Smoking and tobacco status: former smoker Alcohol intake: never Household members: family Vitals/I&O/Wt Last Vital Signs Temp 98.3 F 01/26/21 15:00 Pulse 83 01/26/21 15:54 Resp 16 01/26/21 15:48 BP 106/72 01/26/21 15:00 Pulse Ox 96 01/26/21 15:48 01/26/21 01/26/21 01/26/21 06:59 14:59 22:59 Intake Total 480 / 480 Output Total 700 / 700 250 / 250 Balance -700 / -700 480 / 480 -250 / 230 Weight last 48 hrs Weight 139 lb Physical Exam Narrative: EXAM NARRATIVE: GENERAL: Patient is alert, awake and oriented x3. [] NECK: No jugular vein distension. [] HEENT: No cyanosis. No icterus. No pallor. [] HEART: Regular S1 and S2. No murmur, rub or gallop. [] LUNGS: Mild crackles bilaterally ABDOMEN: Soft, nontender and nondistended. Positive bowel sounds. No guarding, rebound or tenderness. [] CENTRAL NERVOUS SYSTEM: Grossly nonfocal. [] EXTREMITIES: Lower extremities with 1+ edema bilaterally. Pulses palpable in the lower extremities, both dorsalis pedis and posterior tibial. [] A&P Assessment and plan (1) Aortic stenosis: Status: Acute (2) CHF exacerbation: Status: Acute (3) Palpitation: Status: Acute Patient is volume overloaded and has developed dysfunction of her bioprosthetic aortic valve that was replaced 12 years ago. She has significant stenosis across the valve with a gradient of 43mmHg and valve area of 0.4 cm?. DVI 0.11. She will need a replacement of the valve either through TAVR valve in valve procedure or SAVR. However at this time goal will be to make her euvolemic. Continue IV diuresis. Close I&O's. Telemetry monitoring. Volume status improves and she is on room oxygen she can be discharged with outpatient follow-up with Dr. Sheikh in office and evaluation for valve replacement. Her troponin elevation is likely secondary to volume overload and CHF exacerbation as there was no significant delta. Thank you for involving us with care of this patient. We will continue to follow. Please call with questions. Coding Level of Care Code Acute Resident Care Manager for Fabrice Ross Diagnoses Aortic stenosis I35.0 CHF exacerbation I50.9 Palpitation R00.2
--- NOTE | 2021-01-26 19:15 | PC.NURSE ---
Received bedside report from JAMAAL Tinsley. Patient resting in bed watching tv. Patient currently being diuresed. Patient is able to get up to BSC without assistance or difficulty. Patient denies pain or needs. No distress observed.
[2021-01-26] MEDS: ezetimibe 10 mg Tablet PO (20:13)
--- NOTE | 2021-01-26 23:35 | PC.NURSE ---
Patient reports feeling sick to her stomach. Provided dry crackers to nibble on. Informed Dr Flanagan. Waiting for orders to be placed.
[2021-01-27] VITALS (10 sets, daily range): BP systolic 90–107; BP diastolic 62–68; PULSE 73–91; RESP 16–31; TEMP 36.2–36.8; O2SAT 92–98
[2021-01-27] MEDS: ipratropium-albuterol 3 mL Neb INHALATION ×2 (02:22→09:28)
[2021-01-27 04:45] LABS: Basophils # 0.1 10^3/uL (0.0-0.1); Basophils % 1.2 %; Eosinophils # 0.2 10^3/uL (0.0-0.8); Eosinophils % 3.5 %; Hemoglobin 11.5 g/dL (11.5-15.3); Lymphocytes # 1.4 10^3/uL (0.8-4.8); Lymphocytes % 25.1 %; Mean Corpuscular HGB Conc 33.8 g/dL (30.0-36.0); Mean Corpuscular Hemoglobin 31.2 pg (28.0-34.0); Mean Corpuscular Volume 92.1 fL (81-99); Mean Platelet Volume 10.6 fL (7.4-10.4); Monocytes # 0.4 10^3/uL (0.2-0.9); Monocytes % 7.3 %; Neutrophils # 3.59 10^3/uL (1.8-7.7); Neutrophils % 62.6 %; Nucleated Red Blood Cells % 0 %; Platelet Count 235 10^3/cmm (130-400); Red Blood Count 3.69 10^6/uL (4.1-5.3); Red Cell Distribution Width 12.5 % (12.1-15.1); White Blood Count 5.7 10^3/uL (4.0-10.0)
[2021-01-27 05:11] LABS: Cholesterol 182 mg/dL (0-200); HDL Cholesterol 70 mg/dL (60-100); LDL Cholesterol Calculated 93 mg/dL (50-129); Triglycerides 95 mg/dL (0-150); VLDL Cholestrol Calculation 19 mg/dL (0-30)
[2021-01-27 05:12] LABS: Alanine Aminotransferase 10 U/L (0-33); Albumin Level 3.7 g/dL (3.5-5.2); Alkaline Phosphatase 91 IU/L (35-105); Anion Gap 15.2 (5-19); Aspartate Amino Transferase 22 U/L (0-32); Blood Urea Nitrogen 26 mg/dL (8-23); Calcium 8.2 mg/dL (8.5-10.5); Carbon Dioxide 28 mmol/L (22-29); Chloride 96 mmol/L (98-107); Globulin 2.5 g/dL (1.3-4.6); Glucose 117 mg/dL (65-115); Osmolality Calculated 288 mOsm/kg (285-295); Potassium 3.2 mmol/L (3.5-5.1); Sodium 136 mmol/L (136-145); Total Bilirubin 0.8 mg/dL (0.15-1.2); Total Protein 6.2 g/dL (6.6-8.7)
[2021-01-27] MEDS: heparin 5,000 unit/mL INJ 1 mL 5000 UNIT SUBCUT (08:35)
[2021-01-27] MEDS: aspirin 325 mg Tablet PO (08:35)
--- NOTE | 2021-01-27 08:53 | P.PN_ITS ---
Subjective Subjective: Interval history: Patient admitted overnight. H&P and labs appreciated. Patient reevaluation states she has been having palpitations on and off for last couple of weeks for which she had gone to Dr. Sheikh. She was started on Cardizem to which she reacted with numbing and tingling on her face along with difficulty in breathing so it was changed over to metoprolol. She states she feels a lot better with metoprolol though still thinks that it was causing her to have diff iculty in breathing. She states she been having difficulty in breathing both at rest more so and lyi ng down for last 2 to 4 days getting worse last night because of it she came to the ER. She has been having epigastric discomfort going up to retrosternal area which is like heaviness associated with nausea more so on exertion for last 1 week worse since last night. Patient states she still having the symptoms are not today morning though she feels a lot better from breathing today. Overnight patient's troponin went as high as 209 with a delta of 15. Vitals/I&O/Wt Last Vital Signs Temp 98.3 F 01/27/21 07:13 Pulse 73 01/27/21 07:13 Resp 22 H 01/27/21 07:13 BP 90/62 01/27/21 07:13 Pulse Ox 98 01/27/21 07:13 01/26/21 01/27/21 01/27/21 22:59 06:59 14:59 Intake Total 120 / 600 Output Total 450 / 450 700 / 1150 Balance -330 / 150 -700 / -550 Weight last 48 hrs Weight 63.911 kg Weight 63.049 kg Physical Exam Narrative: EXAM NARRATIVE: General: No acute distress, AO x3 mildly tachypneic HEENT: PERRLA, pupils bilaterally equal and reactive Chest: Normal vesicular breath sounds, bilateral fine crackles in the lower zone, occasional rhonchi present all over the lung field, equal good air entry bilaterally CVS: S1-S2 regular, ejection systolic murmur present at the aortic area 1/6 radiating to bilateral carotids, no tachycardia, no gallops, no rubs Abdomen: Soft, nontender, no organomegaly, bowel sounds present Neuro: No focal deficits, no facial deformity, AO x3, power 5/5 in all limbs Data : 01/27/21 04:31 01/27/21 04:31 A&P Assessment and plan (1) Anginal equivalent: Status: Acute (2) Aortic valve replaced: Status: Acute (3) Pacemaker: Status: Acute (4) Acute respiratory failure with hypoxia: Status: Acute (5) CHF exacerbation: Status: Acute (6) Chronic kidney disease: Status: Acute Additional A&P Information 71-year-old female with past medical history of aortic valve placement, pacemaker, COPD, palpitation going on and off for last couple of weeks presented to the ER with symptoms suggestive of CHF along with angina/angina. Angina equivalent: Overnight patient's troponin trended up the delta of 15. Repeat troponin today morning. Patient continues to have episodes of chest and epigastric heaviness. Check HbA1c, lipid panel. Continue aspirin at home dose. We will consult cardiology for possible angiogram in view of elevated troponins. Acute hypoxia secondary to CHF exacerbation Patient has history of bioprosthetic aortic valve and tricuspid valve regurgitation and palpitations. Echocardiogram done results awaited. Patient still short of breath today morning with tachypnea. Switch Bumex to Lasix IV 40 twice daily. Strict input output charting, daily weights. COPD: Start patient on DuoNebs every 6 hours. Oxygen supplementation keeping saturation over 90%. History of aortic valve replacement: As per examination it seems patient valve is tight again. Will await echocardiogram results. Can be the cause of patient's angina equivalent as well. As above will consult cardiology for further recommendations. For now we will avoid nitrates. CKD: Creatinine stable at 1.3. We will continue to monitor. Medical reconciliation done for nephrotoxic drugs. Cardiac diet Full code DVT prophylaxis Heparin Transfer to [facility]. Switch to inpatient status. Coding Level of Care Code Acute Orthotics Prosthetics Assistant for Dulce[facility] Fwd Diagnoses Anginal equivalent I20.8 Aortic valve replaced Z95.2 Pacemaker Z95.0 Acute respiratory failure with hypoxia J96.01 CHF exacerbation I50.9 Chronic kidney disease N18.9
--- NOTE | 2021-01-27 09:03 | PC.NURSE ---
Pressure has been low, manual reading is 92/60. Received orders to d/c 25mg Metoprolol, change the order to Metoprolol 12.5 BID and to hold the morning does, check pressure within an hour and reevaluate.
[2021-01-27] MEDS: potassium chloride ER 20 mEq Tablet 40 MEQ PO (09:44)
[2021-01-27] MEDS: metoprolol tartrate 25 mg Tablet 12.5 MG PO (10:59)
--- NOTE | 2021-01-27 11:04 | PM.DCS ---
Discharge Providers Date of Admission: 01/26/21 11:57 Date of Discharge: January 27, 2021 Attending Provider at Admission: Sena Flanagan MD Attending Provider at Discharge: Yogesh Irizarry MD Consults: Cardiology: Dr. 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, aortic valve replacement December 2008 (4) Acute respiratory failure with hypoxia: Status: Acute (5) CHF exacerbation: Status: Acute (6) Chronic kidney disease: Status: Acute (7) Aortic stenosis: Status: Acute Reason for Visit Reason for Visit: Trouble Breathing Hospital Course Hospital Course Shari Garcia is a 80 year old female who has history of grade 1 diastolic dysfunction EF 55%,, tricuspid regurgitation,Palpitations secondary to valvular heart disease, 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 Patient is adamant that for last 2 weeks she has been experiencing exertional shortness of breath and today it was happening at rest, she is endorsing orthopnea, PND, does not use oxygen at baseline, she is a former smoker, was evaluated by cardiology for her tricuspid valve regurgitation and palpitations, she was prescribed diltiazem. Patient is stating that she took first dose of diltiazem today and felt extremely short of breath afterwards. She did not notice any skin rash, lip swelling, abnormal noises on taking deep breaths. She is denying chest pain, fever, sinus infection, cough, abdominal pain. Diagnosis in the ER revealed normal CBC, respiratory alkalosis, relative hypoxia on room air, she was not requiring oxygen at the time of evaluation, creatinine at baseline, no active chest pain, troponin trending down however baseline troponin 195 EKG showing paced rhythm, normal UA, CTA rule out PE but consistent with CHF/vessel congestion and pleural effusion, no signs of pneumonia. She was given IV 60 mg of Lasix in the ER. She is admitted to the hospital for management of symptoms concerning for congestive heart failure and possible angina. Troponins overnight trended up. Patient was started on IV diuretics after which she started feeling better. Echocardiogram was done which is concerning for EF of 40%, with thickened bioprosthetic aortic valve with severe stenosis with mean gradient across the valve of 43 with AVR 0.4 with mild to moderate aortic regurgitation. After diuresis patient started feeling a lot better. She has been discharged hemodynamically stable condition with advice to follow-up with Dr. Sheikh as an outpatient in 1 week for possible work-up of TAVR valve in valve or surgical redo valve surgery for critical bioprosthetic aortic valve stenosis. Physical Exam Const: COMMON NORMALS: no acute distress GENERAL APPEARANCE: cooperative and comfortable ORIENTATION/CONSCIOUSNESS: Yes awake, Yes oriented to person, Yes oriented to place and Yes oriented to time HENMT: COMMON NORMALS: normocephalic, atraumatic, hearing grossly normal bilaterally, external ears normal, EAC's normal, TM's normal bilaterally, Normal nasal mucous membranes and turbinates present, moist oral mucous membranes and oropharynx normal HEAD & SCALP: normocephalic and atraumatic NOSE: Normal nasal mucous membranes and turbinates present EXTERNAL EAR: Yes external ears normal EXTERNAL AUDITORY CANAL: EAC's normal TYMPANIC MEMBRANE: TM's normal bilaterally Eye: COMMON NORMALS: Equal, round and reactive pupils present, EOMs intact bilaterally, conjunctivae normal and no scleral icterus CONJUNCTIVA: Yes conjunctivae normal PUPIL: Yes Equal, round and reactive pupils present Neck/C-Spine: COMMON NORMALS: full ROM, no lymphadenopathy, supple and no JVD Lymph: LYMPHATIC: no lymphadenopathy noted and no lymphedema noted Resp: COMMON NORMALS: normal respiratory effort, No retractions, No use of accessory muscles and clear to auscultation bilaterally AUSCULTATION: clear to auscultation bilaterally Cardio: COMMON NORMALS: no JVD, regular rate, regular rhythm and No murmurs present (Cardio) RATE: regular rate RHYTHM: regular rhythm GI: COMMON NORMALS: Soft to palpation and No hepatosplenomegaly present AUSCULTATION: Yes normoactive bowel sounds PALPATION: Yes Soft to palpation, No Tenderness to palpation present (GI), No Guarding due to palpation present (GI) and Yes No hepatosplenomegaly present Extremity: COMMON NORMALS: normal to inspection, capillary refill normal, no clubbing, cyanosis or edema, no calf tenderness and no pedal edema Neuro: SENSORIUM/ORIENTATION: Yes oriented to person, Yes oriented to place and Yes oriented to time Skin: COMMON NORMALS: no rashes or lesions noted GENERAL SKIN EXAM: no rashes or lesions noted Discharge Data Data Completed and Pending: Completed Studies During Hospitalization Category Date Time Status CT angio chest PE protcl [id number] Urge nt Cat Scan 01/25/21 18:50 Completed XR chest 1V gaby ble [id number] Stat Exams 01/25/21 17:24 Completed CV echo complete* [id number] Routine Ultrasound 01/26/21 00:25 Completed Labs from last 24 hours 01/27/21 01/27/21 01/27/21 04:31 04:31 04:31 WBC 5.7 RBC 3.69 L Hgb 11.5 Hct 34.0 L MCV 92.1 MCH 31.2 MCHC 33.8 RDW 12.5 Plt Count 235 MPV 10.6 H Neut % (Auto) 62.6 Lymph % (Auto) 25.1 Blanco % (Auto) 7.3 Eos % (Auto) 3.5 Baso % (Auto) 1.2 Neut # (Auto) 3.59 Lymph # (Auto) 1.4 Blanco # (Auto) 0.4 Eos # (Auto) 0.2 Baso # (Auto) 0.1 Nucleated RBC % (a uto) 0 Nucleated RBCs # 0.0 Sodium 136 Potassium 3.2 L Chloride 96 L Carbon Dioxide 28 Anion Gap 15.2 BUN 26 H Creatinine 1.3 H GFR Calculation Not Reportable Glucose 117 H Estimat Average Gl ucose Hemoglobin A1c Calculated Osmolal ity 288 Calcium 8.2 L Iron TIBC % Saturation Unsat Iron Binding Total Bilirubin 0.8 AST 22 ALT 10 Alkaline Phosphata se 91 Troponin T Gen 5 n g/L Total Protein 6.2 L Albumin 3.7 Globulin 2.5 Triglycerides 95 Cholesterol 182 LDL Cholesterol, C alc 93 Total VLDL Cholest megan 19 HDL Cholesterol 70 Cholesterol/HDL Ra milton 2.60 TSH 01/26/21 01/26/21 01/25/21 05:02 05:02 17:33 WBC RBC Hgb Hct MCV MCH MCHC RDW Plt Count MPV Neut % (Auto) Lymph % (Auto) Blanco % (Auto) Eos % (Auto) Baso % (Auto) Neut # (Auto) Lymph # (Auto) Blanco # (Auto) Eos # (Auto) Baso # (Auto) Nucleated RBC % (a uto) Nucleated RBCs # Sodium Potassium Chloride Carbon Dioxide Anion Gap BUN Creatinine GFR Calculation Glucose Estimat Average Gl ucose 88 Hemoglobin A1c 4.7 Calculated Osmolal ity Calcium Iron 59 TIBC 316 % Saturation 18.6 L Unsat Iron Binding 257 Total Bilirubin AST ALT Alkaline Phosphata se Troponin T Gen 5 n g/L 204 H* Total Protein Albumin Globulin Triglycerides Cholesterol LDL Cholesterol, C alc Total VLDL Cholest megan HDL Cholesterol Cholesterol/HDL Ra milton TSH 1.61 Addt'l Data from Hospital Stay: Laboratory Results WBC 5.7 10^3/uL (4.0- 10.0) 01/27/21 04:31 RBC 3.69 10^6/uL (4.1 -5.3) L 01/27/21 04:31 Hgb 11.5 g/dL (11.5-1 5.3) 01/27/21 04:31 Hct 34.0 % (37.0-47.0 ) L 01/27/21 04:31 MCV 92.1 fL (81-99) 01/27/21 04:31 MCH 31.2 pg (28.0-34. 0) 01/27/21 04:31 MCHC 33.8 g/dL (30.0-3 6.0) 01/27/21 04:31 RDW 12.5 % (12.1-15.1 ) 01/27/21 04:31 Plt Count 235 10^3/cmm (130 -400) 01/27/21 04:31 MPV 10.6 fL (7.4-10.4 ) H 01/27/21 04:31 Neut % (Auto) 62.6 % 01/27/21 04:31 Lymph % (Auto) 25.1 % 01/27/21 04:31 Blanco % (Auto) 7.3 % 01/27/21 04:31 Eos % (Auto) 3.5 % 01/27/21 04:31 Baso % (Auto) 1.2 % 01/27/21 04:31 Neut # (Auto) 3.59 10^3/uL (1.8 -7.7) 01/27/21 04:31 Lymph # (Auto) 1.4 10^3/uL (0.8- 4.8) 01/27/21 04:31 Blanco # (Auto) 0.4 10^3/uL (0.2- 0.9) 01/27/21 04:31 Eos # (Auto) 0.2 10^3/uL (0.0- 0.8) 01/27/21 04:31 Baso # (Auto) 0.1 10^3/uL (0.0- 0.1) 01/27/21 04: Nucleated RBC % (a uto) 0 % 01/27/21 04: Nucleated RBCs # 0.0 /100WBC 01/27/21 04:31 Specimen Type Arterial 01/25/21 17:32 Sample Site Radial, left 01/25/21 17:32 ABG pH 7.50 (7.35-7.45) H 01/25/21 17:32 ABG pCO2 32.5 mmHg (35-45) L 01/25/21 17:32 ABG pO2 65.2 mmHg (80.0-1 00.0) L 01/25/21 17:32 ABG HCO3 25.1 mmol/L (22-2 6) 01/25/21 17:32 ABG O2 Saturation 94.9 01/25/21 17:32 ABG Base Excess 2.3 mmol/L (-2.0- 2.0) H 01/25/21 17:32 Conner Test Pos 01/25/21 17:32 A-a O2 Gradient 5.6 mmHg (5-10) 01/25/21 17:32 Hematocrit 38.7 % (37-47) 01/25/21 17:32 Hgb O2 Saturation 93.2 % (95-100) L 01/25/21 17:32 Carboxyhemoglobin 1.0 %THgb (0.4-20 .1) 01/25/21 17:32 Methemoglobin 0.7 % (0.4-1.5) 01/25/21 17:32 Total Hemoglobin 12.6 g/dL (12-16) 01/25/21 17:32 Sodium 136.0 mmol/L (131 -143) 01/25/21 17:32 Potassium 3.4 mmol/L (3.5-5 .0) L 01/25/21 17:32 Glucose 137.0 mg/dL (70-1 15) H 01/25/21 17:32 Ionized Calcium 1.1 mmol/L (1.1-1 .4) 01/25/21 17:32 O2 Delivery Device Room air 01/25/21 17:32 Medical Records Custodian ID Gd 01/25/21 17:32 Sodium 136 mmol/L (136-1 45) 01/27/21 04:31 Potassium 3.2 mmol/L (3.5-5 .1) L 01/27/21 04:31 Chloride 96 mmol/L (98-107 ) L 01/27/21 04:31 Carbon Dioxide 28 mmol/L (22-29) 01/27/21 04:31 Anion Gap 15.2 (5-19) 01/27/21 04:31 BUN 26 mg/dL (8-23) H 01/27/21 04:31 Creatinine 1.3 mg/dL (0.5-0. 9) H 01/27/21 04:31 GFR Calculation Not Reportable 01/27/21 04:31 Glucose 117 mg/dL (65-115 ) H 01/27/21 04:31 Estimat Average Gl ucose 88 01/25/21 17:33 Hemoglobin A1c 4.7 % (4.0-6.0) 01/25/21 17:33 Calculated Osmolal ity 288 mOsm/kg (285- 295) 01/27/21 04:31 Calcium 8.2 mg/dL (8.5-10 .5) L 01/27/21 04:31 Iron 59 ug/dL (37-145) 01/26/21 05:02 TIBC 316 mcg/dl 01/26/21 05:02 % Saturation 18.6 % (20-50) L 01/26/21 05:02 Unsat Iron Binding 257 ug/dL (112-34 7) 01/26/21 05:02 Total Bilirubin 0.8 mg/dL (0.15-1 .2) 01/27/21 04:31 AST 22 U/L (0-32) 01/27/21 04:31 ALT 10 U/L (0-33) 01/27/21 04:31 Alkaline Phosphata se 91 IU/L (35-105) 01/27/21 04:31 Creatine Kinase 54 U/L (26-192) 01/25/21 17:33 Troponin T Gen 5 n g/L 204 ng/L (0-10) H* 01/26/21 05:02 Troponin T Baselin e 195 ng/L (0-10) H* 01/25/21 17:33 Troponin T 120 Min olivia 175.8 ng/L (0-10) H 01/25/21 19:35 Delta Troponin T -19.2 ABS# (0-10) L 01/25/21 19:35 Troponin T Hi Sens 6Hr 209.7 ng/L (0-10) H 01/25/21 23:25 Troponin T Hi Sens 6Hr Delta 14.7 ng/L (0-12) H* 01/25/21 23:25 NT-Pro-B Natriuret Pep > 3500 pg/mL (0-4 50) H 01/25/21 17:33 Total Protein 6.2 g/dL (6.6-8.7 ) L 01/27/21 04:31 Albumin 3.7 g/dL (3.5-5.2 ) 01/27/21 04:31 Globulin 2.5 g/dL (1.3-4.6 ) 01/27/21 04:31 Triglycerides 95 mg/dL (0-150) 01/27/21 04:31 Cholesterol 182 mg/dL (0-200) 01/27/21 04:31 LDL Cholesterol, C alc 93 mg/dL (50-129) 01/27/21 04:31 Total VLDL Cholest megan 19 mg/dL (0-30) 01/27/21 04:31 HDL Cholesterol 70 mg/dL (60-100) 01/27/21 04:31 Cholesterol/HDL Ra milton 2.60 mg/dL (0.0-4 .40) 01/27/21 04:31 TSH 1.61 uIU/mL (0.27 -4.20) 01/26/21 05:02 Urine Color Yellow (Yellow) 01/25/21 17:56 Urine Appearance Clear (CLEAR) 01/25/21 17:56 Urine pH 5 (5-7) 01/25/21 17:56 Ur Specific Gravit y 1.015 (1.005-1.0 30) 01/25/21 17:56 Urine Protein Neg (Negative) 01/25/21 17:56 Urine Glucose (UA) Norm (Normal) 01/25/21 17:56 Urine Ketones Negative (Negati ve) 01/25/21 17:56 Urine Blood Neg (Negative) 01/25/21 17:56 Urine Nitrate Negative (Negati ve) 01/25/21 17:56 Urine Bilirubin Neg (Negative) 01/25/21 17:56 Urine Urobilinogen Norm mg/dL (Negat mar) 01/25/21 17:56 Ur Leukocyte Felicia ase Negative (Negati ve) 01/25/21 17:56 Impressions Chest X-Ray 01/25/21 17:24 IMPRESSION: Mild edema with mild basilar airspace disease and small pleural effusions right greater than left. Chest CTA 01/25/21 18:50 IMPRESSION: 1. There is no pulmonary embolus. 2. There is diffuse interstitial and ground-glass opacity in the lungs compatible with CHF. 3. Additional more prominent airspace/ground-glass opacities are noted in the lower lobes compatible with airspace edema, pneumonitis and/or atelectasis. Moderate sized bilateral pleural effusions are present. Radiation Dose CTDIVOL = (mGy): DLP = 554.29 (mGy-cm) ECHO- 01/26/21 CONCLUSIONS This is technically limited study because of poor visualization of cardiac structures LV systolic function is mildly reduced with EF of 40-45%. Regional wall motion abnormalities can not be ruled out because of poor visualization Diastolic function is indeterminate because of paced rhythm Pacemaker lead noted in right atrium and right ventricle Bioprosthetic aortic valve is not well visualized but is thickened. Severely elevated gradients across the valve. Mean grandient is 43mmHg. DVI is 0.11. There is also mild to moderate aortic regurgitation Moderate pulmonary hypertension Compared to prior echocardiogram from 08/10/2017, LV systolic function has mildly decreased. Patient also has developed severely elevated gradients across the aortic valve and an abnormal DVI of 0.11 now. Will need repeat aortic valve procedure (TAVR valve in valve vs surgical redo valve) Juan Manuel Alvarado MD (Electronically Signed) Final Date: 26 January 2021 21:19 S Vitals: Last Vital Signs Temp 98.3 F 01/27/21 07:13 Pulse 88 01/27/21 09:35 Resp 18 01/27/21 09:28 BP 90/62 01/27/21 07:13 Pulse Ox 95 01/27/21 09:28 Discharge Plan Discharge Patient Disposition: Home Condition: Stable Prescriptions: New furosemide 40 mg Tablet 20 mg PO DAILY@0800 Qty: 30 RF: 0 metoprolol tartrate 25 mg Tablet 12.5 mg PO BID@0900,2100 Qty: 30 RF: 0 Continued aspirin 325 mg tablet 325 mg PO DAILY RF: 0 brimonidine 0.2 % drops 1 drp ophthalmic (eye) BID RF: 0 ezetimibe [Zetia] 10 mg tablet 10 mg PO BEDTIME RF: 0 albuterol sulfate [ProAir HFA] 90 mcg/actuation HFA aerosol inhaler 2 puff INHALATION Q6H PRN (Reason: Shortness Of Breath) RF: 0 meloxicam 7.5 mg tablet 7.5 mg PO DAILY RF: 0 cholecalciferol (vitamin D3) 25 mcg (1,000 unit) capsule 25 mcg PO DAILY RF: 0 latanoprost 0.005 % drops 1 drop ophthalmic (eye) DAILY RF: 0 Acidophilus Probiotic Complex 250 million cell capsule 1 cap PO DAILY RF: 0 cetirizine [Zyrtec] 10 mg tablet 10 mg PO DAILY RF: 0 potassium gluconate 595 mg (99 mg) tablet 595 mg PO DAILY PRN (Reason: w/lasix) RF: 0 Discontinued furosemide 40 mg tablet 40 mg PO DAILY PRN (Reason: edema) RF: 0 diltiazem HCl [Cardizem] 60 mg tablet 60 mg PO BID Qty: 180 RF: 3 Discharge Orders: Discharge Order (Routine); Ordered 01/27/21 Ordered By: Yogesh Irizarry Referrals: Sena Sheikh MD [Physician] - 7-10 days Anderson Cottrell MD [Primary Care Provider] - 7-10 days Discharge Diet: Cardiac Discharge Activity: Resume usual activity Patient Instructions: Opioid Safety Activity Restrictions/Additional Instructions: Please follow-up with Dr. Sheikh your outpatient exhibit technician within the next 1 week for possible work-up for TAVR valve in valve all surgical redo surgery. Continue taking Lasix 20 mg daily. Please follow with your primary care provider within next 7 to 10 days. Discharge Attestations Time Spent in Discharge Care*: greater than 30 min Specific Discharge Activities: educating patient, discussing with therapeutic case manager/social workers/dc planners, documenting/other paperwork and evaluating patient/reviewing data Status at Discharge: Cognitive status at discharge: cognitively intact, Behavioral status at discharge: cooperative, Functional status at discharge: independent ambulation Overall status at discharge: patient is back to baseline Quality Metrics Clinical Quality Measures During this hospital stay, did patient experience: None Coding Level of Care Code Acute g FW DC note Diagnoses Anginal equivalent I20.8 Aortic valve replaced Z95.2 Pacemaker Z95.0 Acute respiratory failure with hypoxia J96.01 CHF exacerbation I50.9 Chronic kidney disease N18.9 Aortic stenosis I35.0
--- NOTE | 2021-01-27 14:51 | PC.NURSE ---
Patient education has been given and patient understands information given along with follow up appointments. Patient has no questions or concerns. VS stable upon departure and pts IV was removed. Patient wheeled out via wheelchair to family members vehicle.
--- NOTE | 2021-01-27 17:01 | P.PN_ITS ---
Subjective Subjective: Interval history: Patient is doing better. She denies any complaints of chest pain. Her breathing difficulty has improved significantly. She is on room air. Vitals/I&O/Wt Last Vital Signs Temp 97.2 F L 01/27/21 14:48 Pulse 91 01/27/21 14:48 Resp 21 H 01/27/21 14:48 BP 107/68 01/27/21 14:48 Pulse Ox 97 01/27/21 14:48 01/27/21 01/27/21 01/27/21 06:59 14:59 22:59 Intake Total 480 / 480 Output Total 700 / 1150 400 / 400 Balance -700 / -550 80 / 80 Weight last 48 hrs Weight 140 lb 14.4 oz Weight 139 lb Physical Exam Narrative: EXAM NARRATIVE: GENERAL: Patient is alert, awake and oriented x3. [ ] NECK: No jugular vein distension. [] HEENT: No cyanosis. No icterus. No pallor. [] HEART: Regular S1 and S2. No murmur, rub or gallop. [] LUNGS: Mild crackles bilaterally ABDOMEN: Soft, nontender and nondistended. Positive bowel sounds. No guarding, rebound or tenderness. [] CENTRAL NERVOUS SYSTEM: Grossly nonfocal. [] EXTREMITIES: Lower extremities with 1+ edema bilaterally. Pulses palpable in the lower extremities, both dorsalis pedis and posterior tibial. [] Data : 01/27/21 04:31 01/27/21 04:31 A&P Assessment and plan (1) Aortic stenosis: Status: Acute (2) CHF exacerbation: Status: Acute (3) Palpitation: Status: Acute Patient is volume overloaded and has developed dysfunction of her bioprosthetic aortic valve that was replaced 12 years ago. She has significant stenosis across the valve with a gradient of 43mmHg and valve area of 0.4 cm?. DVI 0.11. She will need a replacement of the valve either through TAVR valve in valve procedure or SAVR. Patient can be switched to p.o. Lasix 20 mg twice daily. Telemetry monitoring. Patient wants to go home and complete the rest of the work-up as outpatient. She is stable right now and is okay to be discharged from cardiology standpoint. Low-sodium diet advised. Her troponin elevation is likely secondary to volume overload and CHF exacerbation as there was no significant delta. Thank you for involving us with care of this patient. Follow-up with Dr. Sheikh's office in 2 weeks. Please call with questions. Attestations Medical Necessity Statement*: Care expected to cross 2 midnights. Coding Level of Care Code Acute Teaching Aide for g Fwd Diagnoses Aortic stenosis I35.0 CHF exacerbation I50.9 Palpitation R00.2
== END 2021-01-27 14:30 | disposition home or self-care (01) | DRG 291 ==
LOC: ER 20:50 → MEDSURG 01-26 07:29 → CSU 01-26 14:25
PROVIDERS: Family Medicine; Admitting Provider Internal Medicine; Emergency Provider Emergency Medicine; PCP Internal Medicine; Visit Provider Student in an Organized Health Care Education/Training Program
DX: I13.0 Hypertensive heart and chronic kidney disease with heart failure and stage 1 through stage 4 chronic kidney disease, or unspecified chronic kidney disease (principal); I50.33 Acute on chronic diastolic (congestive) heart failure; J96.01 Acute respiratory failure with hypoxia; E87.3 Alkalosis; T82.09XA Other mechanical complication of heart valve prosthesis, initial encounter; N18.9 Chronic kidney disease, unspecified; J44.9 Chronic obstructive pulmonary disease, unspecified; E78.5 Hyperlipidemia, unspecified; Z95.0 Presence of cardiac pacemaker; Z87.891 Personal history of nicotine dependence; E66.9 Obesity, unspecified; Z68.28 Body mass index [BMI] 28.0-28.9, adult; I20.8 Other forms of angina pectoris; Y71.2 Prosthetic and other implants, materials and accessory cardiovascular devices associated with adverse incidents; I08.2 Rheumatic disorders of both aortic and tricuspid valves; Z95.3 Presence of xenogenic heart valve
CPT/HCPCS: 36415; 36600; 71045; 71275; 80048; 80051; 80053; 80061; 81003; 82330; 82550; 82805; 83036; 83540; 83550; 83880; 84443; 84484; 85025; 93005; 93306; 94640; 96372; 96374; 99285; G0378; J1644; J1940; Q9967

== ENCOUNTER 2021-01-29 14:00 | Inpatient (IN) | payer MEDICARE, SELFPAY ==
[2021-01-29] VITALS (9 sets, daily range): BP systolic 100–129; BP diastolic 66–86; PULSE 75–97; RESP 18–28; TEMP 36.9; O2SAT 94–98; BMI 26.9
--- NOTE | 2021-01-29 15:14 | CTR_ITS ---
PROCEDURE INFORMATION: Exam: CT Abdomen And Pelvis With Contrast Exam date and time: 01/29/2021 3:46 PM Age: 80 years old Clinical indication: Abdominal pain; Localized; Left lower quadrant (llq); Prior surgery; Surgery type: Valve TECHNIQUE: Imaging protocol: Computed tomography of the abdomen and pelvis with contrast. Radiation optimization: All CT scans at this facility use at least one of these dose optimization techniques: automated exposure control; mA and/or kV adjustment per patient size (includes targeted exams where dose is matched to clinical indication); or iterative reconstruction. Contrast material: VISPAQUE; Contrast volume: 95 ml; Contrast route: INTRAVENOUS (IV); COMPARISON: CT abdomen pelvis w con* [id number] 07/15/2019 10:02 PM RADIATION DOSE METRICS: Total DLP (mGy-cm): 1274.91 FINDINGS: Tubes, catheters and devices: Permanent pacemaker/AICD leads are noted. Lungs: Prominence of the pulmonary interstitium suggesting interstitial edema. Pleural spaces: Small to moderate bilateral pleural effusions. Heart: Mild cardiomegaly is noted. Liver: The liver is unremarkable in appearance. Gallbladder and bile ducts: Calcified gallstones in the gallbladder. Gallbladder wall is mildly thickened. No biliary dilatation. Pancreas: The pancreas is normal in appearance. No pancreatic duct dilatation. Spleen: Calcified granulomas are noted in the spleen. Adrenal glands: The adrenal glands appear within normal limits. Kidneys and ureters: The kidneys are normal in morphology. No hydronephrosis. No solid mass. Stomach and bowel: No acute gastric abnormality demonstrated. The small bowel is unremarkable as demonstrated. Diverticulosis of the descending and sigmoid colon; no acute diverticulitis. Appendix: The appendix is normal in appearance. No evidence of appendicitis. Intraperitoneal space: No free air. No significant fluid collection. Vasculature: The aorta is atherosclerotic. No aortic aneurysm. Lymph nodes: No pathologically enlarged lymph nodes are demonstrated. Urinary bladder: The urinary bladder is unremarkable in appearance. Reproductive: Unremarkable as visualized. Bones/joints: Moderate old L1 compression fracture. No acute osseous abnormality. Soft tissues: Small bilateral inguinal hernias identified, containing only fat. CT/CT abdomen pelvis w con* [id number] IMPRESSION: 1. Diverticulosis of the descending and sigmoid colon; no acute diverticulitis. 2. Calcified gallstones in the gallbladder. Gallbladder wall is mildly thickened. No biliary dilatation. 3. No acute abnormality demonstrated in the abdomen and pelvis. 4. Cardiomegaly and changes suggesting mild congestive heart failure are seen in the lower thorax. Radiation Dose CTDIVOL = (mGy): DLP = 1274.91 (mGy-cm)
--- NOTE | 2021-01-29 15:14 | XR_ITS ---
WS: [id number] Exam: XR chest 1V portable [id number] Date/Time of Exam: 01/29/2021 3:21 PM Reason For Exam: reduced breath sounds Comparison 01/25/2021. Bibasal pleural effusions showing little change. There is right lower lobe atelectasis. Mild cardiac enlargement with increased vascularity. Signs of cardiac valve replacement. A permanent cardiac pacer superimposes the left chest. The lungs are fully patent. The mediastinum and regional bony structure s are intact. XR/XR chest 1V portable [id number] IMPRESSION: 1. Bibasal pleural effusions with right lower lobe atelectasis. Very little nickolas nge since previous study. 2. Cardiac enlargement with pulmonary vascular engorgement.
--- NOTE | 2021-01-29 15:19 | ECG_ITS ---
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 Measurements Intervals Sherrill Rate: 94 P: 49 DC: 200 QRS: -62 QRSD: 150 T: 66 QT: 423 QTc: 529 Interpretive Statements ELECTRONIC VENTRICULAR PACEMAKER Compared to ECG 01/25/2021 21:08:28 No significant changes Electronically Signed On 01-29-2021 19:13:48 CDT by Juan Manuel Alvarado M.D. [email or web address]
--- NOTE | 2021-01-29 15:21 | W.ED.ABDPA2 ---
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 She was just discharged on the for a CHF exacerbation. Today she complains of left lower quadrant abdominal pain and she says she has had diverticulitis with a perforation in the past and this feels similar. She says she continues to have swelling in her ankles despite taking the Lasix and she feels short of breath when she lays flat and with any exertion at all. She feels dizzy when she is up and walking. In the ED she denies chest pain or shortness of breath MD elicited complaint: abdominal pain Associated Symptoms: Denies GI cramping and diarrhea Review of Systems General: Reports: 10 or more systems reviewed and unremarkable except in HPI and below Const: Denies: fatigue Eyes: Denies: change in vision, blurry vision or eye redness ENMT: Denies: throat pain, swelling of lips/tongue, ear or mastoid pain or nasal congestion Card: Denies: chest pain, palpitations, irregular heart rhythm, edema, dyspnea on exertion or orthopnea Resp: Reports: dyspnea; Denies: productive cough or non-productive cough GI: Reports: abdominal pain; Denies: diarrhea or GI cramping : Denies: flank pain, difficulty voiding, urinary frequency or urinary urgency Musc: Denies: neck pain, back pain, extremity pain, joint pain, joint redness, limited range of motion or muscle weakness Skin/Breast: Denies: rash, pruritus, erythema, skin pain or skin tenderness Neuro: Denies: headache(s), numbness in extremities, weakness in extremities, sensory changes, difficulty walking, dizziness, confusion or Slurred speech present Psych: Denies: anxiety or depression Endo: Denies: polyuria All/Imm: Denies: urticaria, throat swelling or tongue swelling [facility] ED PFSH: Medical History (Updated 01/29/21 @ 20:34 by Tao Aleman MD) Aortic valve stenosis Chronic kidney disease Congestive heart failure COPD (chronic obstructive pulmonary disease) Diverticulitis HTN (hypertension) Hyperlipidemia 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 Brother CAD (coronary artery disease) Other Cancer Myocardial infarct Social History Smoking and tobacco status: former smoker Alcohol intake: never Household members: family Physical Exam Const: COMMON NORMALS: no acute distress, average body habitus, patient oriented x3, no limitations, healthy appearing, alert and well nourished GENERAL APPEARANCE: cooperative, comfortable, well kempt and well developed ORIENTATION/CONSCIOUSNESS: Yes awake, Yes oriented to person, Yes oriented to place and Yes oriented to time HENMT: COMMON NORMALS: normocephalic, external ears normal and Normal external nose present HEAD & SCALP: normal to inspection and normocephalic NOSE: Normal external nose present EXTERNAL EAR: Yes external ears normal MOUTH: Normal oral and palatal mucosa present THROAT: posterior oropharynx normal Eye: COMMON NORMALS: Equal, round and reactive pupils present and EOMs intact bilaterally GENERAL EYE: appearance normal, both eyes and all related structures PUPIL: Yes Equal, round and reactive pupils present Neck/C-Spine: COMMON NORMALS: full ROM, no lymphadenopathy, no meningeal signs and no JVD GENERAL: Yes normal visual inspection Lymph: LYMPHATIC: no lymphadenopathy noted Chest: COMMONS NORMALS: normal inspection of the chest and normal palpation of entire chest wall Resp: COMMON NORMALS: normal respiratory effort, No retractions, No use of accessory muscles, clear to auscultation bilaterally and percussion normal EFFORT & INSPECTION: Yes able to speak in complete sentences AUSCULTATION: clear to auscultation bilaterally PERCUSSION: percussion normal Cardio: COMMON NORMALS: no JVD, regular rate, regular rhythm, S1 normal heart sound present, S2 normal heart sound present and Peripheral pulses 2+ throughout RATE: regular rate RHYTHM: regular rhythm HEART SOUNDS: S1 normal heart sound present and S2 normal heart sound present PERIPHERAL PULSES: Peripheral pulses 2+ throughout GI: COMMON NORMALS: Normal to inspection, nondistended, normoactive bowel sounds present, Soft to palpation, non-tender and no masses INSPECTION: Yes normal to inspection PALPATION: Yes Soft to palpation : COMMON NORMALS: Yes no CVA tenderness BLADDER/KIDNEY EXAM: Yes no CVA tenderness Back/Pelvis: COMMON NORMALS: no CVA tenderness, thoracic and lumbar spine normal to inspection, no thoracic nor lumbar tenderness and thoraco-lumbar ROM normal Extremity: COMMON NORMALS: normal to inspection, full ROM, capillary refill normal, no joint enlargement and no pedal edema GENERAL: Yes normal exam except as noted OTHER: Bilateral lower extremity 2+ pitting edema. Neuro: COMMON NORMALS: patient oriented x3, CN's II-XII intact bilaterally, moves all extremities, no focal motor deficits, no sensory deficits noted and gait normal SENSORIUM/ORIENTATION: Yes alert, Yes oriented to person, Yes oriented to place and Yes oriented to time MENINGEAL SIGNS: Yes no meningeal signs Psych: COMMON NORMALS: mental status grossly normal, Normal thought process present, cooperative, normal affect and speech normal APPEARANCE: Yes well kempt ATTITUDE: Yes calm SPEECH: Yes normal speech THOUGHT PROCESS: Normal thought process present Skin: COMMON NORMALS: no rashes or lesions noted GENERAL SKIN EXAM: no rashes or lesions noted Course Vital Signs: Vital signs: Vital Signs Temperature 98.4 F 01/29/21 14:04 Pulse Rate 93 01/29/21 19:52 Respiratory Rate 24 H 01/29/21 19:00 Blood Pressure 106/68 01/29/21 19:52 Pulse Oximetry 97 01/29/21 19:52 MDM - Abdominal Pain MDM Narrative: Medical decision making narrative: Patient comes in complaining of abdominal pain. She had a similar episode sometime ago where she had diverticulitis with a perforation then she is concerned that it could be the case. CT was negative for any of that. She also continues to complain of shortness of breath on exertion and peripheral edema. She has significant aortic stenosis as well in her history as well as near episodes of passing out. She was given 40 IV Lasix in the ED. Her BNP was also significantly elevated. She will be admitted again. Discussed with Dr. Veras who accepts. Lab Data: Labs: Lab Results 01/29/21 01/29/21 01/29/21 Range/Units 16:05 16:05 16:05 WBC 7.3 (4.0-10.0) 10^3/ uL RBC 3.77 L (4.1-5.3) 10^6/u L Hgb 11.7 (11.5-15.3) g/dL Hct 35.3 L (37.0-47.0) % MCV 93.6 (81-99) fL MCH 31.0 (28.0-34.0) pg MCHC 33.1 (30.0-36.0) g/dL RDW 12.8 (12.1-15.1) % Plt Count 258 (130-400) 10^3/c mm MPV 10.8 H (7.4-10.4) fL Neut % (Auto) 82.9 % Lymph % (Auto) 11.2 % [place] % (Auto) 4.6 % Eos % (Auto) 0.5 % Baso % (Auto) 0.3 % Neut # (Auto) 6.07 (1.8-7.7) 10^3/u L Lymph # (Auto) 0.8 (0.8-4.8) 10^3/u L [place] # (Auto) 0.3 (0.2-0.9) 10^3/u L Eos # (Auto) 0.0 (0.0-0.8) 10^3/u L Baso # (Auto) 0.0 (0.0-0.1) 10^3/u L Nucleated RBC % (a uto) 0 % Nucleated RBCs # 0.0 /100WBC D-Dimer 1.21 H (0-0.59) ug/mIFE U Sodium 129 L (136-145) mmol/L Potassium 4.6 (3.5-5.1) mmol/L Chloride 91 L (98-107) mmol/L Carbon Dioxide 25 (22-29) mmol/L Anion Gap 17.6 (5-19) BUN 36 H (8-23) mg/dL Creatinine 1.5 H (0.5-0.9) mg/dL GFR Calculation Not Reportable Glucose 120 H (65-115) mg/dL Calculated Osmolal ity 278 L (285-295) mOsm/k g Lactate (0.5-2.2) mmol/L Calcium 9.0 (8.5-10.5) mg/dL Total Bilirubin 1.2 (0.15-1.2) mg/dL AST 51 H (0-32) U/L ALT 26 (0-33) U/L Alkaline Phosphata se 115 H (35-105) IU/L Troponin T Baselin e (0-10) ng/L NT-Pro-B Natriuret Pep 83140 H (0-450) pg/mL Total Protein 6.6 (6.6-8.7) g/dL Albumin 4.2 (3.5-5.2) g/dL Globulin 2.4 (1.3-4.6) g/dL Lipase 81 H (13-60) U/L 01/29/21 01/29/21 Range/Units 16:05 16:05 WBC (4.0-10.0) 10^3/ uL RBC (4.1-5.3) 10^6/u L Hgb (11.5-15.3) g/dL Hct (37.0-47.0) % MCV (81-99) fL MCH (28.0-34.0) pg MCHC (30.0-36.0) g/dL RDW (12.1-15.1) % Plt Count (130-400) 10^3/c mm MPV (7.4-10.4) fL Neut % (Auto) % Lymph % (Auto) % [place] % (Auto) % Eos % (Auto) % Baso % (Auto) % Neut # (Auto) (1.8-7.7) 10^3/u L Lymph # (Auto) (0.8-4.8) 10^3/u L [place] # (Auto) (0.2-0.9) 10^3/u L Eos # (Auto) (0.0-0.8) 10^3/u L Baso # (Auto) (0.0-0.1) 10^3/u L Nucleated RBC % (a uto) % Nucleated RBCs # /100WBC D-Dimer (0-0.59) ug/mIFE U Sodium (136-145) mmol/L Potassium (3.5-5.1) mmol/L Chloride (98-107) mmol/L Carbon Dioxide (22-29) mmol/L Anion Gap (5-19) BUN (8-23) mg/dL Creatinine (0.5-0.9) mg/dL GFR Calculation Glucose (65-115) mg/dL Calculated Osmolal ity (285-295) mOsm/k g Lactate 2.2 (0.5-2.2) mmol/L Calcium (8.5-10.5) mg/dL Total Bilirubin (0.15-1.2) mg/dL AST (0-32) U/L ALT (0-33) U/L Alkaline Phosphata se (35-105) IU/L Troponin T Baselin e 219 H* (0-10) ng/L NT-Pro-B Natriuret Pep (0-450) pg/mL Total Protein (6.6-8.7) g/dL Albumin (3.5-5.2) g/dL Globulin (1.3-4.6) g/dL Lipase (13-60) U/L Discharge Plan Discharge Patient Disposition: Admitted As Inpatient Admit Provider: Ki Veras Clinical Impression: Aortic stenosis, CHF exacerbation Condition: Stable Coding Level of Care Code ED Computer Lab Para Professional for Fabrice Ross
[2021-01-29] MEDS: iodixanol 320 mg/mL 100mL Btl IV (16:16)
[2021-01-29 16:17] LABS: Basophils % 0.3 %; Eosinophils % 0.5 %; Hematocrit 35.3 % (37.0-47.0); Hemoglobin 11.7 g/dL (11.5-15.3); Lymphocytes # 0.8 10^3/uL (0.8-4.8); Lymphocytes % 11.2 %; Mean Corpuscular HGB Conc 33.1 g/dL (30.0-36.0); Mean Corpuscular Volume 93.6 fL (81-99); Mean Platelet Volume 10.8 fL (7.4-10.4); Monocytes # 0.3 10^3/uL (0.2-0.9); Monocytes % 4.6 %; Neutrophils # 6.07 10^3/uL (1.8-7.7); Neutrophils % 82.9 %; Nucleated Red Blood Cells % 0 %; Platelet Count 258 10^3/cmm (130-400); Red Blood Count 3.77 10^6/uL (4.1-5.3); Red Cell Distribution Width 12.8 % (12.1-15.1); White Blood Count 7.3 10^3/uL (4.0-10.0)
[2021-01-29 16:34] LABS: D Dimer 1.21 ug/mIFEU (0-0.59)
[2021-01-29] MEDS: FUROsemide 10 mg/mL SDV 4mL 40 MG IVP (16:35)
[2021-01-29 16:51] LABS: Alanine Aminotransferase 26 U/L (0-33); Albumin Level 4.2 g/dL (3.5-5.2); Alkaline Phosphatase 115 IU/L (35-105); Anion Gap 17.6 (5-19); Aspartate Amino Transferase 51 U/L (0-32); Blood Urea Nitrogen 36 mg/dL (8-23); Carbon Dioxide 25 mmol/L (22-29); Chloride 91 mmol/L (98-107); Globulin 2.4 g/dL (1.3-4.6); Glucose 120 mg/dL (65-115); Lipase 81 U/L (13-60); Osmolality Calculated 278 mOsm/kg (285-295); Potassium 4.6 mmol/L (3.5-5.1); Sodium 129 mmol/L (136-145); Total Bilirubin 1.2 mg/dL (0.15-1.2); Total Protein 6.6 g/dL (6.6-8.7)
[2021-01-29 16:52] LABS: Lactate (Lactic Acid level) 2.2 mmol/L (0.5-2.2)
[2021-01-29 16:56] LABS: Troponin(5th) Baseline 219 ng/L (0-10)
--- NOTE | 2021-01-29 17:19 | ECG_ITS ---
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 Measurements Intervals Guild Rate: 94 P: 60 NM: 195 QRS: -75 QRSD: 158 T: 100 QT: 431 QTc: 540 Interpretive Statements ELECTRONIC VENTRICULAR PACEMAKER Compared to ECG 01/29/2021 15:31:58 No significant changes Electronically Signed On 01-29-2021 19:16:14 CDT by Juan Manuel Alvarado M.D. [id number]
[2021-01-29 17:53] LABS: Add Urine Microscopic? NO; Charge for UA Resulting for Rev
[2021-01-29 17:56] LABS: Bilirubin Urine Neg (Negative); Blood Urine Neg (Negative); Glucose Urine UA Norm (Normal); Ketones Urine Negative (Negative); Leukocyte Esterase Urine Negative (Negative); Nitrate Urine Negative (Negative); Protein Urine Neg (Negative); Urine Appearance Clear (CLEAR); Urine Color Straw (Yellow); Urobilinogen Urine Norm (Negative); pH Urine 5 (5-7)
--- NOTE | 2021-01-29 19:03 | PM.HP ---
Providers/Chief Complaint Admitting Physician: Ki Veras MD Primary Care Provider: Anderson Cottrell MD Chief Complaint: CANNOT URINATE, AB PAIN, NO APPETITE History of Present Illness Shari Garcia is a 80 year old female PMH of HFrEF EF of 40%, tricuspid regurgitation,Palpitations secondary to valvular heart disease,thickened bioprosthetic aortic valve ( 2008 ) with severe stenosis with mean gradient across the valve of 43 with AVR 0.4 with mild to moderate aortic regurgitation. status post pacemaker placement due to AV block, COPD, obesity, she was discharged on 01/27 from the hospital after being managed for decompensated heart failure, she was to follow cardiology as an outpatient in 1 week for possible work-up of TAVR valve in valve or surgical redo valve surgery for critical bioprosthetic aortic valve stenosis.Came in today with with worsening generalized weakness, worsening shortness of breath, dizziness, dry heaves, inability to take p.o. intake, abdominal pain, upon arrival in the ER. She was worked up for above-mentioned complaint. Pertinent labs: Serum sodium:129, potassium:4.6, BUN/creatinine:36/1.5. Troponin baseline:219, 2-hour troponin:211, 2-hour delta:-0.8, proBNP:21342, EKG: Ventricular paced rhythm, CT abdomen and pelvis without contrast: No acute abnormality demonstrated in the abdomen and pelvis. Small to moderate bilateral pleural effusions. She was given Lasix 40 IV one-time dose in the ER. Review of Systems Const: Denies: fever(s) or chills Card: Denies: palpitations Resp: Denies: productive cough, wheezing or pain on inspiration GI: Denies: diarrhea or constipation : Denies: flank pain Musc: Denies: extremity pain or extremity swelling Neuro: Denies: headache(s) Medications/Allergies Home Medications Medication Instructions Recorded Confirmed Last Taken Type Lactobacill 1 cap PO DAILY 04/16/20 01/29/21 01/25/21 History acidophilus-L.helvetic-B.bifidum 250 million cell capsule albuterol sulfate 90 mcg/actuation 2 puff INHALATION Q6H PRN 04/16/20 01/29/21 01/25/21 History aerosol inhaler cholecalciferol (vitamin D3) 25 25 mcg PO DAILY 04/16/20 01/29/21 01/29/21 History mcg (1,000 unit) capsule ezetimibe 10 mg tablet 10 mg PO BEDTIME 04/16/20 01/29/21 01/28/21 History latanoprost 0.005 % eye drops 1 drop OPHTHALMIC (EYE) DAILY 04/16/20 01/29/21 01/24/21 History meloxicam 7.5 mg tablet 7.5 mg PO DAILY 04/16/20 01/29/21 01/29/21 History aspirin 325 mg tablet 325 mg PO DAILY 01/12/21 01/29/21 01/29/21 History brimonidine 0.2 % eye drops 1 drp OPHTHALMIC (EYE) BID 01/12/21 01/29/21 01/25/21 History cetirizine 10 mg tablet 10 mg PO DAILY tab 01/12/21 01/29/21 01/29/21 History potassium gluconate 595 mg (99 mg) 595 mg PO DAILY PRN 01/12/21 01/29/21 01/22/21 History tablet furosemide 20 mg PO DAILY@0800 #30 tab 01/27/21 01/29/21 01/29/21 Rx Probiotic 1 tab PO DAILY@0900 01/29/21 01/29/21 01/29/21 History metoprolol succinate 12.5 mg PO BID@01/29/21 01/29/21 01/29/21 History Allergies Allergy/AdvReac Type Severity Reaction Status Date / Time erythromycin base Allergy Unknown Verified 01/25/21 17:09 simvastatin Allergy Unknown Verified 01/25/21 17:09 Sulfa (Sulfonamide Allergy Unknown Verified 01/25/21 17:09 Antibiotics) PFSH Acute PFSH: Medical History (Updated 01/29/21 @ 19:41 by Ki Veras MD) Aortic valve stenosis Chronic kidney disease Congestive heart failure COPD (chronic obstructive pulmonary disease) Diverticulitis HTN (hypertension) Hyperlipidemia 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 Brother CAD (coronary artery disease) Other Cancer Myocardial infarct Social History Smoking and tobacco status: former smoker Alcohol intake: never Household members: family Vitals/I&O/Wt Last Vital Signs Temp 98.4 F 01/29/21 14:04 Pulse 91 01/29/21 18:36 Resp 18 01/29/21 18:36 BP 106/68 01/29/21 18:36 Pulse Ox 95 01/29/21 18:36 Weight last 48 hrs Weight 62.596 kg Physical Exam Const: COMMON NORMALS: patient oriented x3 HENMT: COMMON NORMALS: normocephalic and atraumatic HEAD & SCALP: normocephalic and atraumatic Chest: OTHER: Decreased air entry bilaterally at both the lung bases, bilateral crackles present in both lower lung talavera. Resp: COMMON NORMALS: normal respiratory effort, No retractions, No use of accessory muscles and clear to auscultation bilaterally EFFORT & INSPECTION: Yes symmetric chest movement AUSCULTATION: clear to auscultation bilaterally Cardio: COMMON NORMALS: regular rate, regular rhythm, S1 normal heart sound present, S2 normal heart sound present and Peripheral pulses 2+ throughout RATE: regular rate RHYTHM: regular rhythm HEART SOUNDS: S1 normal heart sound present and S2 normal heart sound present PERIPHERAL PULSES: Peripheral pulses 2+ throughout OTHER: ejection systolic murmur present in the aortic area GI: COMMON NORMALS: Normal to inspection, nondistended, normoactive bowel sounds present, Soft to palpation, non-tender, No hepatosplenomegaly present and no masses AUSCULTATION: Yes normoactive bowel sounds PALPATION: Yes Soft to palpation and Yes No hepatosplenomegaly present RECTAL EXAM: deferred Extremity: COMMON NORMALS: no clubbing, cyanosis or edema and no pedal edema Neuro: COMMON NORMALS: patient oriented x3 Data : 01/29/21 16:05 01/29/21 16:05 A&P Assessment and plan (1) CHF exacerbation: Status: Acute (2) HTN (hypertension): Status: Acute (3) Pacemaker: Status: Acute (4) Aortic stenosis: Status: Acute (5) Generalized weakness: Status: Acute (6) Hyponatremia: Status: Acute (7) CKD (chronic kidney disease): Status: Acute (8) COPD (chronic obstructive pulmonary disease): Status: Acute (9) Elevated troponin: Status: Acute Additional A&P Information #Decompensated heart failure with ejection fraction: Lasix 40 mg IV twice daily Metoprolol tartrate 12.5 mg p.o. twice daily Intake output charting Daily weight K>4, Mg>2 # Severe aortic stenosis: Patient is due to follow cardiology as an outpatient for further work-up. #COPD: Currently not in exacerbation, saturating well on room air. Duo nebs PRN #CKD: Currently at baseline creatinine ( 1.3- 1.5 ) Continue to monitor BMP Avoid nephrotoxic # DVT prophylaxis: 5000 MG SC every 12 hours daily #CODE STATUS: Full code Attestations Medical Necessity Statement*: She needs to be in hospital for management of decompensated heart failure anticipated length of stay greater than 2 midnight. 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
--- NOTE | 2021-01-29 21:19 | ECG_ITS ---
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
[2021-01-29] MEDS: acetaminophen 325 mg Tablet 650 MG PO (22:09)
[2021-01-29] MEDS: heparin 5,000 unit/mL INJ 1 mL 5000 UNIT SUBCUT (22:10)
[2021-01-29] MEDS: ezetimibe 10 mg Tablet PO (22:10)
[2021-01-29] MEDS: metoprolol succinate ER (24 HR) 25 mg Tablet 12.5 MG PO (22:10)
[2021-01-30] VITALS (16 sets, daily range): BP systolic 90–106; BP diastolic 59–72; PULSE 75–93; RESP 16–20; TEMP 36.3–36.8; O2SAT 93–98
[2021-01-30 00:41] LABS: Troponin 5 6HR 206.3 ng/L (0-10); Troponin 5 6HR Delta -12.7 ng/L (0-12)
[2021-01-30] MEDS: ipratropium-albuterol 3 mL Neb INHALATION (04:06)
[2021-01-30 05:36] LABS: Basophils # 0.1 10^3/uL (0.0-0.1); Eosinophils # 0.1 10^3/uL (0.0-0.8); Eosinophils % 2.4 %; Hematocrit 33.3 % (37.0-47.0); Hemoglobin 11.2 g/dL (11.5-15.3); Lymphocytes # 1.3 10^3/uL (0.8-4.8); Lymphocytes % 22.4 %; Mean Corpuscular HGB Conc 33.6 g/dL (30.0-36.0); Mean Corpuscular Hemoglobin 31.3 pg (28.0-34.0); Mean Platelet Volume 11.1 fL (7.4-10.4); Monocytes # 0.5 10^3/uL (0.2-0.9); Monocytes % 7.8 %; Neutrophils # 3.83 10^3/uL (1.8-7.7); Neutrophils % 66.1 %; Nucleated Red Blood Cells % 0 %; Platelet Count 231 10^3/cmm (130-400); Red Blood Count 3.58 10^6/uL (4.1-5.3); Red Cell Distribution Width 12.8 % (12.1-15.1); White Blood Count 5.8 10^3/uL (4.0-10.0)
[2021-01-30 06:02] LABS: Blood Urea Nitrogen 44 mg/dL (8-23); Calcium 8.7 mg/dL (8.5-10.5); Carbon Dioxide 25 mmol/L (22-29); Chloride 92 mmol/L (98-107); Glucose 97 mg/dL (65-115); Magnesium 2.2 mg/dL (1.7-2.3); Osmolality Calculated 283 mOsm/kg (285-295); Sodium 131 mmol/L (136-145)
[2021-01-30 06:06] LABS: Anion Gap 17.7 (5-19); Potassium 3.7 mmol/L (3.5-5.1)
[2021-01-30] MEDS: heparin 5,000 unit/mL INJ 1 mL 5000 UNIT SUBCUT ×2 (07:33→18:09)
[2021-01-30] MEDS: brimonidine 0.2% Op Soln 5 mL Btl 1 DROP EYE-BOTH ×2 (08:36→18:09)
[2021-01-30] MEDS: aspirin 325 mg Tablet PO (08:37)
[2021-01-30] MEDS: cholecalciferol (vitamin D3) 1,000 unit Tablet 1000 UNIT PO (08:37)
[2021-01-30] MEDS: FUROsemide 10 mg/mL SDV 4mL 40 MG IVP (08:37)
[2021-01-30] MEDS: metoprolol succinate ER (24 HR) 25 mg Tablet 12.5 MG PO (08:38)
--- NOTE | 2021-01-30 12:19 | P.PN_ITS ---
Subjective Subjective: Interval history: Patient was seen and examined this morning, she continues of complaining of generalized weakness, and shortness of breath , minimal participation with physical therapy. Her vitals and labs have been reviewed. Medications: Reviewed: Yes Vitals/I&O/Wt Last Vital Signs Temp 98.2 F 01/30/21 11:16 Pulse 77 01/30/21 11:16 Resp 18 01/30/21 11:16 BP 96/64 01/30/21 11:16 Pulse Ox 98 01/30/21 11:16 01/29/21 01/30/21 01/30/21 22:59 06:59 14:59 Intake Total 240 / 240 Balance 240 / 240 Weight last 48 hrs Weight 65.317 kg Weight 62.596 kg Physical Exam Const: COMMON NORMALS: patient oriented x3 HENMT: COMMON NORMALS: normocephalic and atraumatic HEAD & SCALP: n ormocephalic and atraumatic Eye: COMMON NORMALS: no scleral icterus GENERAL EYE: appearance normal, both eyes and all related structures Chest: COMMONS NORMALS: normal inspection of the chest and normal palpation of entire chest wall CHEST: Yes Symmetrical chest wall rise OTHER: Decreased air entry bilaterally at both the lung bases, bilateral crackles present in both lower lung talavera. Resp: COMMON NORMALS: normal respiratory effort, No retractions, No use of accessory muscles and clear to auscultation bilaterally EFFORT & INSPECTION: Yes symmetric chest movement AUSCULTATION: clear to auscultation bilaterally Cardio: COMMON NORMALS: regular rate, regular rhythm, S1 normal heart sound present, S2 normal heart sound present and Peripheral pulses 2+ throughout RATE: regular rate RHYTHM: regular rhythm HEART SOUNDS: S1 normal heart sound present and S2 normal heart sound present PERIPHERAL PULSES: Peripheral pulses 2+ throughout OTHER: ejection systolic murmur present in the aortic area GI: COMMON NORMALS: Normal to inspection, nondistended, normoactive bowel sounds present, Soft to palpation, non-tender, No hepatosplenomegaly present and no masses AUSCULTATION: Yes normoactive bowel sounds PALPATION: Yes Soft to palpation and Yes No hepatosplenomegaly present RECTAL EXAM: deferred Extremity: COMMON NORMALS: no clubbing, cyanosis or edema and no pedal edema Neuro: COMMON NORMALS: patient oriented x3 Data : 01/30/21 04:33 01/30/21 04:33 A&P Assessment and plan (1) CHF exacerbation: Status: Acute (2) HTN (hypertension): Status: Acute (3) Pacemaker: Status: Acute (4) Aortic stenosis: Status: Acute (5) Generalized weakness: Status: Acute (6) Hyponatremia: Status: Acute (7) CKD (chronic kidney disease): Status: Acute (8) COPD (chronic obstructive pulmonary disease): Status: Acute (9) Elevated troponin: Status: Acute Additional A&P Information #Decompensated heart failure with reduced ejection fraction: Lasix 40 mg IV twice daily Metoprolol tartrate 12.5 mg p.o. twice daily Intake output charting Daily weight K>4, Mg>2 #Severe aortic stenosis: Patient is due to follow cardiology as an outpatient for further work-up. #COPD: Currently not in exacerbation, saturating well on room air. Duo nebs PRN #CKD: Currently at baseline creatinine ( 1.3- 1.5 ) Continue to monitor BMP Avoid nephrotoxic #Elevated troponin: Baseline troponin: 219, 2-hour troponin:211, 2-hour delta: - 8 , 6-hour troponin: 206, 6-hour delta: - 12.7 # DVT prophylaxis: Heparin 5000 u SC every 12 hours daily #CODE STATUS: Full code Attestations Medical Necessity Statement*: Patient needs to be in hospital for management of decompensated heart failure. 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
[2021-01-30] MEDS: oxyCODONE-APAP 5-325 mg Tablet 1 TAB PO (20:02)
[2021-01-30] MEDS: ezetimibe 10 mg Tablet PO (22:00)
[2021-01-31] VITALS (11 sets, daily range): BP systolic 93–105; BP diastolic 67–77; PULSE 71–86; RESP 16–22; TEMP 36.3–36.7; O2SAT 95–99
--- NOTE | 2021-01-31 01:39 | PC.NURSE ---
Around 2300: Patient's B/Ps have been sustaining in the low 90s (systolic) throughout shift. Held evening dose of Lasix and metoprolol, approved by Dr. Flanagan.
[2021-01-31 05:33] LABS: Basophils # 0.1 10^3/uL (0.0-0.1); Basophils % 1.2 %; Eosinophils # 0.2 10^3/uL (0.0-0.8); Eosinophils % 3.9 %; Hematocrit 32.1 % (37.0-47.0); Hemoglobin 10.8 g/dL (11.5-15.3); Lymphocytes # 1.4 10^3/uL (0.8-4.8); Lymphocytes % 23.9 %; Mean Corpuscular HGB Conc 33.6 g/dL (30.0-36.0); Mean Corpuscular Hemoglobin 31.5 pg (28.0-34.0); Mean Corpuscular Volume 93.6 fL (81-99); Mean Platelet Volume 11.1 fL (7.4-10.4); Monocytes # 0.4 10^3/uL (0.2-0.9); Monocytes % 7.1 %; Neutrophils # 3.77 10^3/uL (1.8-7.7); Neutrophils % 63.7 %; Nucleated Red Blood Cells % 0 %; Platelet Count 231 10^3/cmm (130-400); Red Blood Count 3.43 10^6/uL (4.1-5.3); Red Cell Distribution Width 13.2 % (12.1-15.1); White Blood Count 5.9 10^3/uL (4.0-10.0)
[2021-01-31 05:54] LABS: Anion Gap 18.8 (5-19); Blood Urea Nitrogen 46 mg/dL (8-23); Calcium 8.6 mg/dL (8.5-10.5); Carbon Dioxide 24 mmol/L (22-29); Chloride 89 mmol/L (98-107); Glucose 100 mg/dL (65-115); Magnesium 2.3 mg/dL (1.7-2.3); Osmolality Calculated 278 mOsm/kg (285-295); Potassium 3.8 mmol/L (3.5-5.1); Sodium 128 mmol/L (136-145)
[2021-01-31] MEDS: heparin 5,000 unit/mL INJ 1 mL 5000 UNIT SUBCUT ×2 (06:12→18:11)
[2021-01-31] MEDS: latanoprost 0.005% Op Soln 2.5 mL Btl 1 DROP EYE-BOTH (09:06)
[2021-01-31] MEDS: FUROsemide 10 mg/mL SDV 4mL 40 MG IVP ×2 (09:07→16:55)
[2021-01-31] MEDS: cholecalciferol (vitamin D3) 1,000 unit Tablet 1000 UNIT PO (09:07)
[2021-01-31] MEDS: brimonidine 0.2% Op Soln 5 mL Btl 1 DROP EYE-BOTH ×2 (09:07→18:11)
[2021-01-31] MEDS: metoprolol succinate ER (24 HR) 25 mg Tablet 12.5 MG PO ×2 (09:07→20:42)
[2021-01-31] MEDS: aspirin 81 mg Chew Tablet PO (09:07)
--- NOTE | 2021-01-31 10:02 | PC.NURSE ---
pt wants bath tonight befor bed
--- NOTE | 2021-01-31 11:49 | PC.CHAP ---
Pastoral Care Encounter/Spiritual Assessment Type of Contact [] Declined seismograph observer visit [] Patient/Family/Request visit [] Outpatient visit [] Follow-up visit [] Physician referral [] Code/Alert [XX] Routine visit [] Staff referral [] Actively dying [] Patient sleeping [] Family support [] [] Out of room [] Palliative care [] [XX] Receiving care in room [] Pre-surgical visit [] Trauma [] Long length of stay [] ICU visit [] Other: Relational/Emotional Strength [] Patient feels connected with others/family/visitors/staff [] Distress [] Loneliness/isolation [] Abandonment Spirituality of Patient [] Person of Jennifer [] Attends Yazidism of their Jennifer [] Believes in Prayer [] Reads Bible or Yazidi materials [] There are Spiritual issues to be addressed Behavioral Psychologist Interventions [] Prayer [] Active listening [] Non-anxious presence [] Spiritual/emotional support [] Crisis/trauma care [] Spiritual counseling [] Bereavement support [] Provided bereavement packet [] Provided Bible/devotional materials [] Provided toy/stuffed animal, coloring book to patient or family member [] Provided Communion [] Anointing/Rudyard [] Salvation [] Completed spiritual assessment [] Other: Impact on Illness or Injury [] Angry [] Fearful [] Anxious [] Often cries [] Exhaustion [] Unable to work [] Unable to attend moravian [] Unable to walk/stand [] Unable to read [] Unable to drive [] Unable to eat/drink [] Unable to sleep [] Unable to be with family [] Patient intubated [] Other: Summary Time spent with patient
--- NOTE | 2021-01-31 15:19 | P.PN_ITS ---
Subjective Subjective: Interval history: Patient was seen and examined this morning, shortness of breath has improved.Though she still complains of getting fatigued with even small exertion. She also thinks that she needs home oxygen.Currently saturating well on room air. Medications: Reviewed: Yes Vitals/I&O/Wt Last Vital Signs Temp 97.4 F L 01/31/21 14:38 Pulse 81 01/31/21 14:38 Resp 18 01/31/21 14:38 BP 105/77 01/31/21 14:38 Pulse Ox 98 01/31/21 14:38 01/31/21 01/31/21 01/31/21 06:59 14:59 22:59 Intake Total 120 / 120 Output Total 100 / 100 Balance Weight last 48 hrs Weight 65.544 kg Weight 65.317 kg Physical Exam Const: COMMON NORMALS: patient oriented x3 HENMT: COMMON NORMALS: normocephalic and atraumatic HEAD & SCALP: normocephalic and atraumatic Eye: COMMON NORMALS: no scleral icterus GENERAL EYE: appearance normal, both eyes and all related structures Chest: COMMONS NORMALS: normal inspection of the chest and normal palpation of entire chest wall CHEST: Yes Symmetrical chest wall rise OTHER: Diminished lung sounds at right lower lung base, with fine crackles at right lower lung base. Resp: COMMON NORMALS: normal respiratory effort, No retractions, No use of accessory muscles and clear to auscultation bilaterally EFFORT & INSPECTION: Yes symmetric chest movement AUSCULTATION: clear to auscultation bilaterally Cardio: COMMON NORMALS: regular rate, regular rhythm, S1 normal heart sound present, S2 normal heart sound present and Peripheral pulses 2+ throughout RATE: regular rate RHYTHM: regular rhythm HEART SOUNDS: S1 normal heart sound present and S2 normal heart sound present PERIPHERAL PULSES: Peripheral pulses 2+ throughout OTHER: ejection systolic murmur present in the aortic ar ea GI: COMMON NORMALS: Normal to inspection, nondistended, normoactive bowel sounds present, Soft to palpation, non-tender, No hepatosplenomegaly present and no masses AUSCULTATION: Yes normoactive bowel sounds PALPATION: Yes Soft to palpation and Yes No hepatosplenomegaly present RECTAL EXAM: deferred Extremity: COMMON NORMALS: no clubbing, cyanosis or edema and no pedal edema Neuro: COMMON NORMALS: patient oriented x3 Data : 01/31/21 05:01 01/31/21 05:01 A&P Assessment and plan (1) CHF exacerbation: Status: Acute (2) HTN (hypertension): Status: Acute (3) Pacemaker: Status: Acute (4) Aortic stenosis: Status: Acute (5) Generalized weakness: Status: Acute (6) Hyponatremia: Status: Acute (7) CKD (chronic kidney disease): Status: Acute (8) COPD (chronic obstructive pulmonary disease): Status: Acute (9) Elevated troponin: Status: Acute Additional A&P Information #Decompensated heart failure with reduced ejection fraction: Initially on Lasix 40 mg IV twice daily. We will switch to p.o. Lasix 40 mg daily from morning. Metoprolol tartrate 12.5 mg p.o. twice daily Intake output charting Daily weight K>4, Mg>2 #Severe aortic stenosis: Appreciate cardiology consult.Plan is to possibly transfer the patient to her primary cardiothoracic surgeon Dr. Patel in [place], for possible redo surgery/or TAVR valve in valve. #COPD: Currently not in exacerbation, saturating well on room air. Duo nebs PRN #CKD: Baseline creatinine ( 1.3- 1.5 ). Currently serum creatinine is: 1.8 Continue to monitor BMP Avoid nephrotoxic Urine electrolytes Intake output charting #Elevated troponin: Baseline troponin: 219, 2-hour troponin:211, 2-hour delta: - 8 , 6-hour troponin: 206, 6-hour delta: - 12.7 # DVT prophylaxis: Heparin 5000 u SC every 12 hours daily #CODE STATUS: Full code Attestations Medical Necessity Statement*: Patient needs to be in hospital for management of decompensated heart failure. Coding Level of Care Code Acute Complex Care Nurse Practitioner for g Fwd Diagnoses CHF exacerbation I50.9 HTN (hypertension) I10 Pacemaker Z95.0 Aortic stenosis I35.0 Generalized weakness R53.1 Hyponatremia E87.1 CKD (chronic kidney disease) N18.9 COPD (chronic obstructive pulmonary disease) J44.9 Elevated troponin R77.8
--- NOTE | 2021-01-31 17:12 | PM.CONSULT ---
Providers/Reason For Consult Consulting Physican/Specialty*: Cardiology Reason for Consult*: Shortness of breath recurrent heart failure aortic valve stenosis Attending Physician: Ki Veras MD Primary Care Provider: Anderson Cottrell MD History of Present Illness History of Present Illness 80-year-old female past medical history significant for moderately depressed LV function 40%, CHF, COPD, permanent pacemaker placement, history of bioprosthetic aortic valve placed in 2008 due to worsening of shortness of breath PND orthopnea and decompensated recurrent heart failure was admitted. She was diuresed effectively however she still continues to have shortness of breath. Echocardiogram showed mean gradient across the aortic valve 43 mmHg while aortic valve area 0.4 cm?. There is also mild to moderate aortic regurgitation Review of Systems General: Reports: 10 or more systems reviewed and unremarkable except in HPI and below Const: Denies: fever(s), chills or fatigue Eyes: Denies: change in vision, blurry vision or eye redness ENMT: Denies: throat pain, swelling of lips/tongue, ear or mastoid pain or nasal congestion Card: Denies: chest pain, palpitations, irregular heart rhythm, edema, dyspnea on exertion or orthopnea Resp: Reports: dyspnea; Denies: productive cough, non-productive cough, wheezing or pain on inspiration GI: Reports: abdominal pain; Denies: diarrhea, constipation or GI cramping : Denies: flank pain, difficulty voiding, urinary frequency or urinary urgency Musc: Denies: neck pain, back pain, extremity pain, extremity swelling, joint pain, joint redness, limited range of motion or muscle weakness Skin/Breast: Denies: rash, pruritus, erythema, skin pain or skin tenderness Neuro: Denies: headache(s), numbness in extremities, weakness in extremities, sensory changes, difficulty walking, dizziness, confusion or Slurred speech present Psych: Denies: anxiety or depression Endo: Denies: polyuria All/Imm: Denies: urticaria, throat swelling or tongue swelling Meds/Allergies Home Medications and Allergies Home Medications Medication Instructions Recorded Confirmed Last Taken Type Lactobacill 1 cap PO DAILY 04/16/20 01/29/21 01/25/21 History acidophilus-L.helvetic-B.bifidum 250 million cell capsule albuterol sulfate 90 mcg/actuation 2 puff INHALATION Q6H PRN 04/16/20 01/29/2121 History aerosol inhaler cholecalciferol (vitamin D3) 25 25 mcg PO DAILY 04/16/20 01/29/21 01/29/21 History mcg (1,000 unit) capsule ezetimibe 10 mg tablet 10 mg PO BEDTIME 04/16/20 01/29/21 01/28/21 History latanoprost 0.005 % eye drops 1 drop OPHTHALMIC (EYE) DAILY 04/16/20 01/29/21 01/24/21 History meloxicam 7.5 mg tablet 7.5 mg PO DAILY 04/16/20 01/29/21 01/29/21 History aspirin 325 mg tablet 325 mg PO DAILY 01/12/21 01/29/21 01/29/21 History brimonidine 0.2 % eye drops 1 drp OPHTHALMIC (EYE) BID 01/12/21 01/29/21 01/25/21 History cetirizine 10 mg tablet 10 mg PO DAILY tab 01/12/21 01/29/21 01/29/21 History potassium gluconate 595 mg (99 mg) 595 mg PO DAILY PRN 01/12/21 01/29/21 01/22/21 History tablet furosemide 20 mg PO DAILY@0800 #30 tab 01/27/21 01/29/21 01/29/21 Rx Probiotic 1 tab PO DAILY@0900 01/29/21 01/29/21 01/29/21 History metoprolol succinate 12.5 mg PO BID@01/29/21 01/29/21 01/29/21 History Allergies Allergy/AdvReac Type Severity Reaction Status Date / Time erythromycin base Allergy Unknown Verified 01/25/21 17:09 simvastatin Allergy Unknown Verified 01/25/21 17:09 Sulfa (Sulfonamide Allergy Unknown Verified 01/25/21 17:09 Antibiotics) Current Medications Current Medications Generic Name Dose Route Start Last Admin Trade Name Freq PRN Reason Stop Dose Admin Acetaminophen 650 mg 01/29/21 18:55 01/29/21 22:09 Acetaminophen 325 Mg Tablet PO 650 mg Q6H PRN Administration Mild/Mod Pain Or Temp >/= 101 Albuterol/Ipratropium 3 ml 01/29/21 19:40 01/30/21 04:06 Ipratropium-Albuterol 3 Ml Neb INHALATION 3 ml Q6H PRN Administration SHORTNESS OF BREATH Aspirin 81 mg 01/31/21 09:00 01/31/21 09:07 Aspirin 81 Mg Chew Tablet PO 81 mg DAILY JANET Administration Brimonidine Tartrate 1 drop 01/30/21 09:00 01/31/21 09:07 Brimonidine 0.2% Op Soln 5 Ml Btl EYE-BOTH 1 drop BID JANET Administration Ezetimibe 10 mg 01/29/21 21:00 01/30/21 22:00 Ezetimibe 10 Mg Tablet PO 10 mg BEDTIME JANET Administration Furosemide 40 mg 01/31/21 17:21 01/31/21 16:55 Furosemide 10 Mg/Ml Sdv 4ml IVP 01/31/21 17:22 40 mg ONCE ONE Administration Heparin Sodium (Beef Lung) 5,000 unit 01/29/21 19:00 01/31/21 06:12 Heparin 5,000 Unit/Ml Inj 1 Ml SUBCUT 5,000 unit Q12H JANET Administration Latanoprost 1 drop 01/30/21 09:00 01/31/21 09:06 Latanoprost 0.005% Op Soln 2.5 Ml Btl EYE-BOTH 1 drop DAILY JANET Administration Metoprolol Succinate 12.5 mg 01/29/21 21:00 01/31/21 09:07 Metoprolol Succinate Er (24 Hr) 25 Mg Tablet PO 12.5 mg BID@ JANET Administration Oxycodone/Acetaminophen 1 tab 01/29/21 18:55 01/30/21 20:02 Oxycodone-Apap 5-325 Mg Tablet PO 1 tab Q4H PRN Administration SEVERE PAIN Vitamin D 1,000 unit 01/30/21 09:00 01/31/21 09:07 Cholecalciferol (Vitamin D3) 1,000 Unit Tablet PO 1,000 unit DAILY JANET Administration PFSH Acute PFSH: Medical History (Updated 02/01/21 @ 19:03 by Sena Sheikh MD) Aortic valve stenosis Chronic kidney disease Congestive heart failure COPD (chronic obstructive pulmonary disease) Diverticulitis HTN (hypertension) Hyperlipidemia 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 Brother CAD (coronary artery disease) Other Cancer Myocardial infarct Social History Smoking and tobacco status: former smoker Alcohol intake: never Household members: family Dietary Habits: Current diet type/program: regular Vitals/I&O/Wt Last Vital Signs Temp 97.4 F L 01/31/21 14:38 Pulse 81 01/31/21 14:38 Resp 18 01/31/21 14:38 BP 105/77 01/31/21 14:38 Pulse Ox 98 01/31/21 14:38 01/31/21 01/31/21 01/31/21 06:59 14:59 22:59 Intake Total 120 / 120 Output Total 100 / 100 Balance Weight last 48 hrs Weight 144 lb 8 oz Weight 144 lb Physical Exam Narrative: EXAM NARRATIVE: GENERAL: Patient is lethargic and oriented x3 sitting by the bedside NECK: No jugular vein distension. HEENT: No cyanosis. No icterus. No pallor. HEART: Regular S1 and S2. 2/ 6 sys murmur, rub or gallop. LUNGS: Decreased breath sound bilaterally. ABDOMEN: Soft, nontender and nondistended. Positive bowel sounds. No guarding, rebound or tenderness. CENTRAL NERVOUS SYSTEM: Grossly nonfocal. EXTREMITIES: Lower extremities with 1+ edema bilaterally. A&P Assessment and plan (1) Aortic stenosis: Patient has worsening of prosthetic aortic valve with gradient across the aortic valve and severe range of more than 40 mmHg. She is not a good candidate for open heart we recommend valve in valve TAVR if indicated. We will refer the patient to [facility] where patient's first surgery was performed. Status: Acute Qualifiers: Cardiac valve disease etiology: etiology unspecified Qualified Code(s): I35.0 - Nonrheumatic aortic (valve) stenosis (2) CHF exacerbation: Here to be compensated continue current regimen. Shortness of breath is mostly due to valve as well. Status: Acute Qualifiers: Heart failure type: systolic Qualified Code(s): I50.23 - Acute on chronic systolic (congestive) heart failure (3) HTN (hypertension): Well-controlled continue medicine. Status: Acute Qualifiers: Hypertension type: essential hypertension Qualified Code(s): I10 - Essential (primary) hypertension (4) Palpitation: Denies any more palpitation Status: Acute (5) Pacemaker: Stable in good standing. Status: Acute Consult Attestations Medical Necessity Statement: Patient require continuation hospitalization for above defined care. Coding Level of Care Code Established Pt Acute Outpatient Services Director for g Fwd Patient Type Established History Detailed Exam Detailed Medical Decision Making Moderate Complexity Diagnoses Aortic stenosis I35.0 Cardiac valve disease etiology: etiology unspecified CHF exacerbation I50.23 Heart failure type: systolic HTN (hypertension) I10 Hypertension type: essential hypertension Palpitation R00.2 Pacemaker Z95.0
[2021-01-31] MEDS: ondansetron 2 mg/ML SDV 2 mL 4 MG IVP (18:10)
[2021-01-31] MEDS: ezetimibe 10 mg Tablet PO (20:41)
[2021-01-31] MEDS: oxyCODONE-APAP 5-325 mg Tablet 1 TAB PO (20:41)
[2021-02-01] VITALS (9 sets, daily range): BP systolic 92–100; BP diastolic 56–70; PULSE 65–74; RESP 18–24; TEMP 36.4–36.7; O2SAT 96–99
[2021-02-01 03:51] LABS: Basophils # 0.1 10^3/uL (0.0-0.1); Eosinophils # 0.2 10^3/uL (0.0-0.8); Eosinophils % 4.2 %; Hematocrit 32.1 % (37.0-47.0); Hemoglobin 10.3 g/dL (11.5-15.3); Lymphocytes # 1.2 10^3/uL (0.8-4.8); Lymphocytes % 22.3 %; Mean Corpuscular HGB Conc 32.1 g/dL (30.0-36.0); Mean Corpuscular Hemoglobin 31.4 pg (28.0-34.0); Mean Corpuscular Volume 97.9 fL (81-99); Mean Platelet Volume 10.9 fL (7.4-10.4); Monocytes # 0.5 10^3/uL (0.2-0.9); Monocytes % 9.1 %; Neutrophils # 3.29 10^3/uL (1.8-7.7); Neutrophils % 62.6 %; Nucleated Red Blood Cells % 0 %; Platelet Count 210 10^3/cmm (130-400); Red Blood Count 3.28 10^6/uL (4.1-5.3); Red Cell Distribution Width 13.2 % (12.1-15.1); White Blood Count 5.3 10^3/uL (4.0-10.0)
[2021-02-01 04:11] LABS: Anion Gap 16.7 (5-19); Blood Urea Nitrogen 57 mg/dL (8-23); Calcium 8.5 mg/dL (8.5-10.5); Carbon Dioxide 24 mmol/L (22-29); Chloride 91 mmol/L (98-107); Glucose 76 mg/dL (65-115); Magnesium 2.5 mg/dL (1.7-2.3); Osmolality Calculated 281 mOsm/kg (285-295); Potassium 3.7 mmol/L (3.5-5.1); Sodium 128 mmol/L (136-145)
--- NOTE | 2021-02-01 04:40 | PC.NURSE ---
Asked atient if she would like to take a bath. Patient stated She was waiting for her daughter to bring her clean clothes.
[2021-02-01] MEDS: heparin 5,000 unit/mL INJ 1 mL 5000 UNIT SUBCUT ×2 (06:11→18:03)
[2021-02-01] MEDS: cholecalciferol (vitamin D3) 1,000 unit Tablet 1000 UNIT PO (08:26)
[2021-02-01] MEDS: FUROsemide 40 mg Tablet PO (08:26)
[2021-02-01] MEDS: aspirin 81 mg Chew Tablet PO (08:26)
[2021-02-01] MEDS: metoprolol succinate ER (24 HR) 25 mg Tablet 12.5 MG PO ×2 (08:26→20:14)
[2021-02-01] MEDS: latanoprost 0.005% Op Soln 2.5 mL Btl 1 DROP EYE-BOTH (08:27)
[2021-02-01] MEDS: brimonidine 0.2% Op Soln 5 mL Btl 1 DROP EYE-BOTH ×2 (08:27→18:03)
--- NOTE | 2021-02-01 09:37 | PC.SOCIAL ---
IMM Update Pg.2 of IMM updated and reviewed with patient who verbalized understanding. Copy provided.
--- NOTE | 2021-02-01 15:46 | PM.PN ---
Subjective Subjective: Interval history: Patient was seen this morning, she is sitting up at the side of the bed, she tells me that overall she has gotten better, but she still gets short of breath with minimal exertion such as using the bathroom, no chest pain, no lightheadedness, no dizziness Vitals/I&O/Wt Last Vital Signs Temp 98.0 F 02/01/21 15:11 Pulse 70 02/01/21 15:11 Resp 18 02/01/21 15:11 BP 100/56 02/01/21 15:11 Pulse Ox 98 02/01/21 15:11 02/01/21 02/01/21 02/01/21 06:59 14:59 22:59 Intake Total 150 / 870 120 / 120 Output Total 300 / 300 Balance 150 / 670 120 / 120 -300 / -180 Weight last 48 hrs Weight 65.453 kg Weight 65.544 kg Physical Exam Const: COMMON NORMALS: no acute distress and patient oriented x3 HENMT: COMMON NORMALS: normocephalic HEAD & SCALP: normocephalic Neck/C-Spine: COMMON NORMALS: no JVD Resp: COMMON NORMALS: normal respiratory effort, No retractions, No use of accessory muscles and clear to auscultation bilaterally AUSCULTATION: clear to auscultation bilaterally Cardio: COMMON NORMALS: no JVD, regular rate, regular rhythm, S1 normal heart sound present and S2 normal heart sound present RATE: regular rate RHYTHM: regular rhythm HEART SOUNDS: S1 normal heart sound present and S2 normal heart sound present GI: COMMON NORMALS: Normal to inspection, nondistended, normoactive bowel sounds present, Soft to palpation, non-tender, No hepatosplenomegaly present, no masses and no bruits PALPATION: Yes Soft to palpation and Yes No hepatosplenomegaly present Extremity: COMMON NORMALS: capillary refill normal, no clubbing, cyanosis or edema, no calf tenderness and no pedal edema Neuro: COMMON NORMALS: patient oriented x3 Psych: COMMON NORMALS: mental status grossly normal Data : 02/01/21 03:26 02/01/21 03:26 A&P Assessment and plan (1) CHF exacerbation: Status: Acute (2) HTN (hypertension): Status: Acute (3) Pacemaker: Status: Acute (4) Aortic stenosis: Status: Acute (5) Generalized weakness: Status: Acute (6) Hyponatremia: Status: Acute (7) CKD (chronic kidney disease): Status: Acute (8) COPD (chronic obstructive pulmonary disease): Status: Acute (9) Elevated troponin: Status: Acute Additional A&P Information #Decompensated heart failure with reduced ejection fraction: Continue Lasix 40 mg p.o. daily Metoprolol tartrate 12.5 mg p.o. twice daily Intake output charting Daily weight K>4, Mg>2 #Severe aortic stenosis: Appreciate cardiology consult.Plan is to possibly transfer the patient to her primary cardiothoracic surgeon Dr. Patel in [place], for possible redo surgery/or TAVR valve in valve. #COPD: Currently not in exacerbation, saturating well on room air. Duo samanta PRN #CKD: Baseline creatinine ( 1.3- 1.5 ). Currently serum creatinine is: 1.8 Continue to monitor BMP Avoid nephrotoxic Urine electrolytes Intake output charting #Hyponatremia, serum sodium 128, likely secondary to heart failure, continue to monitor #Elevated troponin: Baseline troponin: 219, 2-hour troponin:211, 2-hour delta: -8 , 6-hour troponin: 206, 6-hour delta: - 12.7 # DVT prophylaxis: Heparin 5000 u SC every 12 hours daily #CODE STATUS: Full code Plan for today, continue Lasix therapy, continue PT OT, monitor respiratory status, monitor urine output, awaiting possible transfer to [place] Attestations Medical Necessity Statement*: Patient requires hospitalization for for continued shortness of breath secondary to CHF, severe aortic stenosis Coding Level of Care Code Acute [facility] [employer] [facility] Fwd Diagnoses CHF exacerbation I50.9 HTN (hypertension) I10 Pacemaker Z95.0 Aortic stenosis I35.0 Generalized weakness R53.1 Hyponatremia E87.1 CKD (chronic kidney disease) N18.9 COPD (chronic obstructive pulmonary disease) J44.9 Elevated troponin R77.8
--- NOTE | 2021-02-01 18:37 | PC.RESP ---
Pulmonary Rehab information sent to patient.
[2021-02-01] MEDS: ezetimibe 10 mg Tablet PO (20:14)
[2021-02-02] VITALS (11 sets, daily range): BP systolic 90–104; BP diastolic 57–81; PULSE 67–72; RESP 18–24; TEMP 36.6–36.7; O2SAT 67–100
[2021-02-02] MEDS: heparin 5,000 unit/mL INJ 1 mL 5000 UNIT SUBCUT (06:22)
[2021-02-02 06:49] LABS: Basophils % 0.7 %; Eosinophils # 0.1 10^3/uL (0.0-0.8); Hematocrit 32.3 % (37.0-47.0); Hemoglobin 10.8 g/dL (11.5-15.3); Lymphocytes # 0.8 10^3/uL (0.8-4.8); Lymphocytes % 15.6 %; Mean Corpuscular HGB Conc 33.4 g/dL (30.0-36.0); Mean Corpuscular Hemoglobin 31.6 pg (28.0-34.0); Mean Corpuscular Volume 94.4 fL (81-99); Mean Platelet Volume 11.2 fL (7.4-10.4); Monocytes # 0.6 10^3/uL (0.2-0.9); Monocytes % 10.2 %; Neutrophils # 3.84 10^3/uL (1.8-7.7); Neutrophils % 71.1 %; Nucleated Red Blood Cells % 0 %; Platelet Count 228 10^3/cmm (130-400); Red Blood Count 3.42 10^6/uL (4.1-5.3); Red Cell Distribution Width 13.4 % (12.1-15.1); White Blood Count 5.4 10^3/uL (4.0-10.0)
[2021-02-02 07:05] LABS: Alanine Aminotransferase 20 U/L (0-33); Albumin Level 4.1 g/dL (3.5-5.2); Alkaline Phosphatase 117 IU/L (35-105); Anion Gap 19.8 (5-19); Aspartate Amino Transferase 29 U/L (0-32); Blood Urea Nitrogen 62 mg/dL (8-23); Calcium 8.7 mg/dL (8.5-10.5); Carbon Dioxide 23 mmol/L (22-29); Chloride 88 mmol/L (98-107); Globulin 2.4 g/dL (1.3-4.6); Glucose 82 mg/dL (65-115); Magnesium 2.6 mg/dL (1.7-2.3); Osmolality Calculated 281 mOsm/kg (285-295); Potassium 3.8 mmol/L (3.5-5.1); Sodium 127 mmol/L (136-145); Total Protein 6.5 g/dL (6.6-8.7)
[2021-02-02 07:38] LABS: NT Pro B Type Natriuretic Pept 68874 pg/mL (0-450)
[2021-02-02] MEDS: brimonidine 0.2% Op Soln 5 mL Btl 1 DROP EYE-BOTH (08:32)
[2021-02-02] MEDS: metoprolol succinate ER (24 HR) 25 mg Tablet 12.5 MG PO (08:33)
[2021-02-02] MEDS: aspirin 81 mg Chew Tablet PO (08:33)
[2021-02-02] MEDS: cholecalciferol (vitamin D3) 1,000 unit Tablet 1000 UNIT PO (08:33)
[2021-02-02] MEDS: FUROsemide 40 mg Tablet PO (08:33)
[2021-02-02] MEDS: latanoprost 0.005% Op Soln 2.5 mL Btl 1 DROP EYE-BOTH (08:33)
--- NOTE | 2021-02-02 12:39 | PM.DCS ---
Discharge Providers Date of Admission: 01/29/21 18:55 Date of Discharge: February 02, 2021 Attending Provider at Admission: Ki Veras MD Attending Provider at Discharge: Modesto Haines MD Primary Care Provider: Anderson Cottrell MD Diagnoses at Discharge Discharge Diagnosis (1) Aortic stenosis: Status: Acute Qualifiers: Cardiac valve disease etiology: etiology unspecified Qualified Code(s): I35.0 - Nonrheumatic aortic (valve) stenosis (2) CHF exacerbation: Status: Acute Qualifiers: Heart failure type: systolic Qualified Code(s): I50.23 - Acute on chronic systolic (congestive) heart failure (3) HTN (hypertension): Status: Acute Qualifiers: Hypertension type: essential hypertension Qualified Code(s): I10 - Essential (primary) hypertension (4) Palpitation: Status: Acute (5) Pacemaker: Status: Acute Permanent problem details: 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, 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, aortic valve replacement December 2008 Reason for Visit Reason for Visit: CANNOT URINATE, AB PAIN, NO APPETITE Hospital Course Hospital Course This is a 80-year-old female with a past medical history of systolic CHF, aortic valve stenosis, CKD, history of pacemaker placement, with placement of bioprosthetic aortic valve in 2008, who presents to [facility] due to worsening shortness of breath, orthopnea, paroxysmal nocturnal dyspnea Patient was admitted to [facility] for systolic CHF exacerbation, and worsening aortic stenosis For systolic CHF, received diuretic therapy, diuresed over 2 L, clinically improved, discharge on Lasix 40 mg mg daily with potassium replacement. Creatinine on discharge was 1.8, baseline 1.3-1.5. Patient has a hyponatremia likely secondary to use heart failure throughout her hospitalization, sodium on discharge 127.Continue to have episodes of shortness of breath with exertion on discharge, no crackles on exam, no evidence of worsening CHF, likely related to aortic stenosis, will have patient follow-up with cardiology as below For patient's aortic stenosis, history of bioprosthetic aortic valve in 2008, had worsening prosthetic aortic valve with gradient across the aortic valve severe range of 40 mmHg, cardiology was consulted, as patient was not deemed a candidate for urgent TAVR, she will be referred to [facility] for TAVR procedure. Physical Exam Const: COMMON NORMALS: no acute distress and patient oriented x3 Resp: COMMON NORMALS: normal respiratory effort, No retractions, No use of accessory muscles and clear to auscultation bilaterally AUSCULTATION: clear to auscultation bilaterally Cardio: COMMON NORMALS: regular rate, regular rhythm, S1 normal heart sound present and S2 normal heart sound present RATE: regular rate RHYTHM: regular rhythm HEART SOUNDS: S1 normal heart sound present and S2 normal heart sound present GI: COMMON NORMALS: Normal to inspection, nondistended, normoactive bowel sounds present, Soft to palpation, non-tender, No hepatosplenomegaly present and no bruits PALPATION: Yes Soft to palpation and Yes No hepatosplenomegaly present Extremity: COMMON NORMALS: no pedal edema Neuro: COMMON NORMALS: patient oriented x3 Psych: COMMON NORMALS: mental status grossly normal Discharge Data Data Completed and Pending: Completed Studies During Hospitalization Category Date Time Status CT abdomen pelvis w con* [id number] Urge nt Cat Scan 01/29/21 15:14 Completed XR chest 1V gaby ble [id number] Urgent Exams 01/29/21 15:14 Completed Pending at discharge Category Date Time Status Complete Blood Co unt w/Auto AM LABS Lab 02/03/21 04:00 Ordered Complete Blood Co unt w/Auto AM LABS Lab 02/04/21 04:00 Ordered Comprehensive Met abolic Panel AM LA BS Lab 02/03/21 04:00 Ordered Comprehensive Met abolic Panel AM LA BS Lab 02/04/21 04:00 Ordered Magnesium AM LABS Lab 02/03/21 04:00 Ordered Magnesium AM LABS Lab 02/04/21 04:00 Ordered NT Pro B Type Yanni riuretic Pept QAM Lab 02/03/21 06:00 Ordered NT Pro B Type Yanni riuretic Pept QAM Lab 02/04/21 06:00 Ordered Labs from last 24 hours 02/02/21 02/02/21 02/02/21 06:27 06:27 06:27 WBC 5.4 RBC 3.42 L Hgb 10.8 L Hct 32.3 L MCV 94.4 MCH 31.6 MCHC 33.4 RDW 13.4 Plt Count 228 MPV 11.2 H Neut % (Auto) 71.1 Lymph % (Auto) 15.6 [place] % (Auto) 10.2 Eos % (Auto) 2.0 Baso % (Auto) 0.7 Neut # (Auto) 3.84 Lymph # (Auto) 0.8 [place] # (Auto) 0.6 Eos # (Auto) 0.1 Baso # (Auto) 0.0 Nucleated RBC % (a uto) 0 Nucleated RBCs # 0.0 Sodium 127 L Potassium 3.8 Chloride 88 L Carbon Dioxide 23 Anion Gap 19.8 H BUN 62 H Creatinine 1.8 H GFR Calculation Not Reportable Glucose 82 Calculated Osmolal ity 281 L Calcium 8.7 Magnesium 2.6 H Total Bilirubin 1.0 AST 29 ALT 20 Alkaline Phosphata se 117 H NT-Pro-B Natriuret Pep 16726 H Total Protein 6.5 L Albumin 4.1 Globulin 2.4 Vitals: Last Vital Signs Temp 98.0 F 02/02/21 07:32 Pulse 70 02/02/21 11:04 Resp 18 02/02/21 11:04 BP 100/60 02/02/21 11:04 Pulse Ox 97 02/02/21 11:04 Discharge Plan Discharge Patient Disposition: Home Condition: Stable Prescriptions: New potassium chloride [Klor-Con M20] 20 mEq tablet,ER particles/crystals 20 meq PO DAILY 30 Days Qty: 30 RF: 0 Continued aspirin 325 mg tablet 325 mg PO DAILY RF: 0 brimonidine 0.2 % drops 1 drp ophthalmic (eye) BID RF: 0 ezetimibe [Zetia] 10 mg tablet 10 mg PO BEDTIME RF: 0 albuterol sulfate [ProAir HFA] 90 mcg/actuation HFA aerosol inhaler 2 puff INHALATION Q6H PRN (Reason: Shortness Of Breath) RF: 0 cholecalciferol (vitamin D3) 25 mcg (1,000 unit) capsule 25 mcg PO DAILY RF: 0 latanoprost 0.005 % drops 1 drop ophthalmic (eye) DAILY RF: 0 Acidophilus Probiotic Complex 250 million cell capsule 1 cap PO DAILY RF: 0 cetirizine [Zyrtec] 10 mg tablet 10 mg PO DAILY RF: 0 metoprolol succinate 25 mg Tablet Extended Release 24 Hr 12.5 mg PO BID@ RF: 0 Probiotic 1 tab PO DAILY@0900 RF: 0 furosemide 40 mg Tablet 20 mg PO DAILY@0800 30 Days Qty: 30 RF: 0 Held meloxicam 7.5 mg tablet 7.5 mg PO DAILY RF: 0 Hold Instructions: Resume on 02/23/21. chf Discontinued potassium gluconate 595 mg (99 mg) tablet 595 mg PO DAILY PRN (Reason: w/lasix) RF: 0 Discharge Orders: Discharge Order (Routine); Ordered 02/02/21 Ordered By: Modesto Haines Referrals: Sena Sheikh MD [Physician] - 1-3 days (aortic stenosis) Anderson Cottrell MD [Primary Care Provider] - 1-3 days Discharge Diet: Cardiac Discharge Activity: Resume usual activity Patient Instructions: Opioid Safety Activity Restrictions/Additional Instructions: -Please follow-up with cardiology in the next few days -Continue Lasix with potassium -If you have worsening shortness of breath please come back to the emergency room -Follow-up with primary care for repeat check of your creatinine and serum sodium, repeat BMP Discharge Attestations Time Spent in Discharge Care*: less than 30 min Status at Discharge: Cognitive status at discharge: cognitively intact, Behavioral status at discharge: cooperative, Quality Metrics Clinical Quality Measures During this hospital stay, did patient experience: None Coding Level of Care Code Acute Chg FW DC note Diagnoses Aortic stenosis I35.0 Cardiac valve disease etiology: etiology unspecified CHF exacerbation I50.23 Heart failure type: systolic HTN (hypertension) I10 Hypertension type: essential hypertension Palpitation R00.2 Pacemaker Z95.0
[2021-02-02] MEDS: oxyCODONE-APAP 5-325 mg Tablet 1 TAB PO (13:14)
--- NOTE | 2021-02-02 13:35 | PM.PN ---
Subjective Subjective: Interval history: Patient states she is feeling better she has usual shortness of breath. Medications: Reviewed: Yes Vitals/I&O/Wt Last Vital Signs Temp 98.0 F 02/02/21 07:32 Pulse 70 02/02/21 13:04 Resp 22 H 02/02/21 13:14 BP 100/60 02/02/21 13:04 Pulse Ox 97 02/02/21 13:04 02/01/21 02/02/21 02/02/21 22:59 06:59 14:59 Intake Total 120 / 240 150 / 390 Output Total 550 / 550 1000 / 1550 200 / 200 Balance -430 / -310 -850 / -1160 -200 / -200 Weight last 48 hrs Weight 144 lb Weight 144 lb 4.8 oz Physical Exam Narrative: EXAM NARRATIVE: GENERAL: Patient is lethargic and oriented x3 sitting by the bedside NECK: No jugular vein distension. HEENT: No cyanosis. No icterus. No pallor. HEART: Regular S1 and S2. 2/6 sys murmur, rub or gallop. LUNGS: Decreased breath sound bilaterally. ABDOMEN: Soft, nontender and nondistended. Positive bowel sounds. No guarding, rebound or tenderness. CENTRAL NERVOUS SYSTEM: Grossly nonfocal. EXTREMITIES: Lower extremities without edema bilaterally. Data : 02/02/21 06:27 02/02/21 06:27 A&P Assessment and plan (1) Aortic stenosis: Patient has worsening of prosthetic aortic valve with gradient across the aortic valve and severe range of more than 40 mmHg. She is not a good candidate for open heart we recommend valve in valve TAVR if indicated. We will refer the patient to [facility] where patient's first surgery was performed. Currently patient is stable she will be referred again to Dr. Rodas for aortic valve replacement consultation as an outpatient Status: Acute Qualifiers: Cardiac valve disease etiology: etiology unspecified Qualified Code(s): I35.0 - Nonrheumatic aortic (valve) stenosis (2) CHF exacerbation: Currently compensated continue current regimen Status: Acute Qualifiers: Heart failure type: systolic Qualified Code(s): I50.23 - Acute on chronic systolic (congestive) heart failure (3) HTN (hypertension): Well-controlled continue medicine. Status: Acute Qualifiers: Hypertension type: essential hypertension Qualified Code(s): I10 - Essential (primary) hypertension (4) Palpitation: Denies any more palpitation Status: Acute (5) Pacemaker: Stable in good standing. Status: Acute Attestations Medical Necessity Statement*: From cardiovascular perspective patient can be discharged Coding Level of Care Code Established Pt Acute Production Aide for [employer]ce[employer] Fwd Patient Type Established History Detailed Exam Detailed Medical Decision Making Moderate Complexity Diagnoses Aortic stenosis I35.0 Cardiac valve disease etiology: etiology unspecified CHF exacerbation I50.23 Heart failure type: systolic HTN (hypertension) I10 Hypertension type: essential hypertension Palpitation R00.2 Pacemaker Z95.0
--- NOTE | 2021-02-02 21:30 | PC.NURSE ---
Family member called stating that the pharmacy did not fill the metoprolol succinate. Med rec states that patient takes Metoprolol succinate at home, family states that patient takes metoprolol tartrate at home. Upon discharge, it appears that metoprolol succinate was showed as a continued medication instead of a new medication due to the med rec stating that the patient takes this at home. [facility] in [place] is the pharmacy the family member states that she uses. metorprolol succinate order that was placed upon discharge has been called to this pharmacy. family member call back phone number is [phone]. Dr. Sheikh notified of the issue that the pharmacy is closed and all the patient has at home is metoprolol tartrate. Family member was educated that Dr. Sheikh ordered to take metoprolol tartrate at home tonight and to slate picker metoprolol succinate tomorrow morning when pharmacy opens. Family member states that the patient might refuse it because the tartrate makes her so sick.
== END 2021-02-02 18:00 | disposition home or self-care (01) | DRG 291 ==
LOC: ER 15:00 → CSU 18:38
PROVIDERS: Admitting Provider Internal Medicine; Emergency Provider Family Medicine; PCP Internal Medicine; Visit Provider Family Medicine
DX: I13.0 Hypertensive heart and chronic kidney disease with heart failure and stage 1 through stage 4 chronic kidney disease, or unspecified chronic kidney disease (principal); I50.23 Acute on chronic systolic (congestive) heart failure; E87.1 Hypo-osmolality and hyponatremia; N18.9 Chronic kidney disease, unspecified; I08.2 Rheumatic disorders of both aortic and tricuspid valves; Z95.3 Presence of xenogenic heart valve; J44.9 Chronic obstructive pulmonary disease, unspecified; E78.5 Hyperlipidemia, unspecified; Z95.0 Presence of cardiac pacemaker; Z87.891 Personal history of nicotine dependence
CPT/HCPCS: 36415; 71045; 74177; 80048; 80053; 81003; 83605; 83690; 83735; 83880; 84484; 85025; 85378; 93005; 94640; 96372; 96374; 97110; 97161; 97165; 97530; 97535; 99285; J1644; J1940; J2405; Q9967